=== PATIENT | female | born 1960 | race African-American/Black ===

== ENCOUNTER 2016-10-24 02:42 | Emergency (ER) | payer MEDICARE, MEDICAID ==
--- NOTE | 2016-10-24 03:35 | ER Document Report ---
ED General - General Chief Complaint: Fall Stated Complaint: FALL,NECK/BACK PAIN Time Seen by Provider: 10/24/16 03:12 Notes: Patient is a 56-year-old female with past medical history of chronic back pain, fibromyalgia, chronically on narcotics who presents with diffuse musculoskeletal pain after a slip and fall. Patient apparently slipped on a floor and landed onto her back. She arrives complaining of pain in every part of her body, unable to tell me any area of her body that does not hurt. Describes it as a severe, constant, throbbing pain. Nothing improves or worsens her pain. She has a history of similar falls in the past. She has not seen her primary care doctor regarding today's concerns. TRAVEL OUTSIDE OF THE [place] IN LAST 30 DAYS: No - Related Data Allergies/Adverse Reactions: carbamazepine [From Tegretol] Allergy (Verified 12/15/15 15:20) ibuprofen [From Motrin] Allergy (Verified 12/15/15 15:20) iodine Allergy (Verified 12/15/15 15:20) phenytoin [From Dilantin] Allergy (Verified 12/15/15 15:20) Past Medical History - General Information source: Patient, Relative - Social History Smoking Status: Unknown if Ever Smoked Frequency of alcohol use: None Drug Abuse: None Lives with: Family Family History: Reviewed & Not Pertinent Neurological Medical History: Reports: Hx Migraine, Hx Seizures Endocrine Medical History: Reports: Hx Hypothyroidism GI Medical History: Reports: Hx Crohn's Disease Musculoskeltal Medical History: Reports Hx Musculoskeletal Trauma Past Surgical History: Reports: Hx Cholecystectomy, Hx Orthopedic Surgery - Knee replacement 11/19/2015 - Immunizations Hx Diphtheria, Pertussis, Tetanus Vaccination: Yes Review of Systems - Review of Systems Notes: Constitutional: Negative for fever. Eyes: Negative for visual changes. ENT: Negative for facial injury Cardiovascular: Negative for chest injury. Respiratory: Negative for shortness of breath. Gastrointestinal: Negative for abdominal injury. Genitourinary: Negative for genital injury Musculoskeletal: Positive for diffuse musculoskeletal pain Skin: Negative for laceration/abrasions. Neurological: Negative for head injury. Physical Exam - Vital signs Vitals: Temp Pulse Resp BP Pulse Ox 97.7 F 70 20 124/85 98 10/24/16 02:56 10/24/16 02:56 10/24/16 02:56 10/24/16 02:56 10/24/16 02:56 Interpretation: Normal Notes: PHYSICAL EXAMINATION: GENERAL: Anxious, appears to be in pain. HEAD: Atraumatic, normocephalic. EYES: Pupils equal round and reactive to light, extraocular movements intact, sclera anicteric, conjunctiva are normal. ENT: nares patent, no oral pharyngeal trauma. No hemotympanum, no Montana's sign , no raccoon eyes. NECK: No midline cervical spine tenderness. Patient able to move their head to 45 bilaterally without any discomfort. LUNGS: Breath sounds clear to auscultation bilaterally and equal. No wheezes rales or rhonchi. HEART: Regular rate and rhythm without murmurs. CHEST WALL: No ecchymosis over the chest wall. ABDOMEN: Soft, nontender, normoactive bowel sounds. No guarding, no rebound. No abdominal bruising EXTREMITIES: Normal range of motion, no pitting or edema. No long bone deformities. BACK: No midline spinal tenderness, step-offs, or deformities. Diffuse paraspinous muscle tenderness to palpation NEUROLOGICAL: Face symmetric. Tongue protrudes midline. Extraocular motions intact. Pupils are 2 mm and equally reactive. Normal speech, normal gait. 5 out of 5 strength in both the distal and proximal upper and lower extremities bilaterally. Sensation is grossly intact throughout. PSYCH: Anxious, tearful SKIN: Warm, Dry, normal turgor, no rashes or lesions noted. Course - Re-evaluation Re-evalutation: 10/24/16 03:30 Presents with full body pain after a mechanical slip and fall after she slipped on the floor after recently mopping it. Patient is moaning, crying when I walk into the room but is redirectable and able to actually fully turn over in the bed onto her abdomen without difficulty. Patient has been seen in this emergency department on 4 prior occasions for falls and pain related complaints due to her chronic issues including fibromyalgia and chronic low back pain. Of concern, patient is unfortunately on oxycodone 90 mg daily as well as a 75 mcg/ h fentanyl patch and also apparently is prescribed amphetamines by the same provider. Her exam is not concerning for any acute injury and appears to be more likely diffuse musculoskeletal contusions and spasms compounded by hyperalgesia in the setting of this very high level of narcotic use. Examination is somewhat limited as patient complains of pain and every portion of her body. Patient cannot actually identify to me a single area of her body that does not hurt. Given that she appears to have most focal pain in her pelvis and low back as well as her right hand will obtain plain films of these areas. Patient evaluated by NEXUS criteria and found to be negative. Patient is also negative by cape verdean C-spine criteria. No clinical evidence to suggest increased risk of cervical spine fracture. No indication for further imaging of the cervical spine this point. No focal neurologic deficits on exam, no evidence of basilar skull fracture on exam without evidence of hemotympanum, raccoon eyes, or periauricular hematoma. No papilledema. Patient is not on anticoagulation. GCS is 15. No loss of consciousness. No episodes of vomiting. Patient is therefore negative via Lebanese head CT criteria and CT imaging will not be obtained at this time. 10/24/16 05:00 X-rays are unremarkable. Patient has remained neurovascularly intact. No indication for further imaging at this time. At this time will discharge with return precautions and follow-up recommendations. Verbal discharge instructions given a the bedside and opportunity for questions given. Medication warnings reviewed. Patient is in agreement with this plan and has verbalized understanding of return precautions and the need for primary care follow-up in the next 24-72 hours. - Vital Signs Vital signs: Temp Pulse Resp BP Pulse Ox 97.7 F 70 20 124/85 98 10/24/16 02:56 10/24/16 02:56 10/24/16 02:56 10/24/16 02:56 10/24/16 02:56 - Diagnostic Test Radiology reviewed: Reports reviewed Discharge - Discharge Clinical Impression: Fall Qualifiers: Encounter type: initial encounter Qualified Code(s): W19.XXXA - Unspecified fall, initial encounter Chronic pain Qualifiers: Chronic pain type: chronic pain syndrome Qualified Code(s): G89.4 - Chronic pain syndrome Opiate dependence Qualifiers: Substance use status: uncomplicated Qualified Code(s): F11.20 - Opioid dependence, uncomplicated Condition: Good Disposition: HOME, SELF-CARE Additional Instructions: Your x-rays not show any acute fracture today. You likely have soft tissue injuries and muscle inflammation secondary to your fall. You can use heat or ice to augment her chronic pain regimen. Please follow-up with your primary care physician if you do not have improving your symptoms in the next 1-2 weeks. Please return immediately if you develop weakness, numbness, spreading redness from the area, or any other symptoms that are concerning to you. Please also seriously consider having a conversation with your primary care doctor about the very large quantity of narcotic pain medications and amphetamines you are taking. These are directly related to how much pain you are having today after your accident.
[2016-10-24] MEDS ORDERED: LIDOCAINE 5% (700 MG) TRANSDERMAL ADH..PATCH TP ONE (03:39)
[2016-10-24] MEDS ORDERED: ACETAMINOPHEN 325 MG TABLET PO ONE (03:40)
[2016-10-24] MEDS ORDERED: FENTANYL CITRATE INJ/PF 100 MCG/2 ML AMPUL IV ONE (03:44)
--- NOTE | 2016-10-24 04:47 | RADIOLOGY REPORT (SQ) ---
EXAM DESCRIPTION: HAND RIGHT 3 VIEWS COMPLETED DATE/TIME: 10/24/2016 4:21 am REASON FOR STUDY: fall COMPARISON: None. EXAM PARAMETERS: NUMBER OF VIEWS: Three views. TECHNIQUE: AP, lateral and oblique radiographic images acquired of the right hand. LIMITATIONS: None. FINDINGS: MINERALIZATION: Normal. BONES: No acute fracture or dislocation. No worrisome bone lesions. JOINTS: Mild osteoarthritis of the 1st carpometacarpal joint. Moderate osteoarthritis of the interph alangeal joints worst at the right 2nd and 3rd distal interphalangeal joints with moderate osteophyte s and small fragmentation. SOFT TISSUES: No soft tissue swelling. No foreign body. OTHER: No other significant finding. IMPRESSION: Moderate osteoarthritis. NO RADIOGRAPHIC EVIDENCE OF ACUTE INJURY. TECHNICAL DOCUMENTATION: JOB ID: [id number]- All Rights Reserved
--- NOTE | 2016-10-24 04:51 | RADIOLOGY REPORT (SQ) ---
EXAM DESCRIPTION: L SPINE WHOLE COMPLETED DATE/TIME: 10/24/2016 4:21 am REASON FOR STUDY: fall COMPARISON: 03/17/2016 NUMBER OF VIEWS: Five views including obliques. TECHNIQUE: AP, lateral, oblique, and sacral radiographic images acquired of the lumbar spine. LIMITATIONS: None. FINDINGS: MINERALIZATION: Normal. SEGMENTATION: Normal. No transitional anatomy. ALIGNMENT: Normal. VERTEBRAE: Maintained height. No fracture or worrisome bone lesion. 0.2 cm chronic developmental fr agmentation at the anterior aspect of the L1 inferior endplate. DISCS: Mild L1-L2 disc desiccation. POSTERIOR ELEMENTS: Mild lower lumbar spondylosis. HARDWARE: Right upper abdominal clips. The PARASPINAL SOFT TISSUES: Normal. PELVIS: Intact as visualized. No fractures or worrisome bone lesions. SI joints intact. OTHER: No other significant finding. IMPRESSION: No acute findings. Mild lumbar spondylosis. TECHNICAL DOCUMENTATION: JOB ID: [id number] [employer]- All Rights Reserved
--- NOTE | 2016-10-24 04:52 | RADIOLOGY REPORT (SQ) ---
EXAM DESCRIPTION: PELVIS AP COMPLETED DATE/TIME: 10/24/2016 4:21 am REASON FOR STUDY: fall COMPARISON: None. NUMBER OF VIEWS: One view TECHNIQUE: AP Pelvis LIMITATIONS: None. FINDINGS: MINERALIZATION: Normal. HIPS: No acute fracture or dislocation. No worrisome bone lesions. PELVIS AND SACRUM: No acute fracture or dislocation. No worrisome bone lesions. PUBIS AND ISCHIUM: No acute fracture. LOWER LUMBAR SPINE: [id number] lower lumbar spondylosis. SOFT TISSUES: No findings. OTHER: No other significant finding. IMPRESSION: No acute findings. TECHNICAL DOCUMENTATION: JOB ID: [id number] [employer]- All Rights Reserved
[2016-10-24 05:14] VITALS: BP 130/65
== END 2016-10-24 05:14 | disposition home or self-care (01) ==
LOC: ER 02:42
DX: Z04.3 Encounter for examination and observation following other accident (principal); W01.0XXA Fall on same level from slipping, tripping and stumbling without subsequent striking against object, initial encounter; G89.4 Chronic pain syndrome; M54.5 Low back pain; M79.7 Fibromyalgia; F41.9 Anxiety disorder, unspecified; F11.20 Opioid dependence, uncomplicated; Z88.6 Allergy status to analgesic agent; Z88.5 Allergy status to narcotic agent
CPT/HCPCS: 99283; 96374; 73130; 72110; 72170; A9270; J3010

== ENCOUNTER → 2016-11-27 | Outpatient (CLI) | payer MEDICARE, MEDICAID ==
--- NOTE | 2016-11-27 14:22 | RADIOLOGY REPORT (SQ) ---
EXAM DESCRIPTION: LUMBAR SPINE COMPLETE COMPLETED DATE/TIME: 11/27/2016 1:57 pm REASON FOR STUDY: LUMBAGO WITH SCIATICA, RIGHT SIDE M25.571 PAIN IN RIGHT ANKLE AND JOINTS OF RIGHT FOOT M79.5 RESIDUAL FOREIGN BODY IN SOFT TISSUE M25.561 PAIN IN RIGHT KNEE COMPARISON: 10/24/2016 NUMBER OF VIEWS: Five views including obliques. TECHNIQUE: AP, lateral, oblique, and sacral radiographic images acquired of the lumbar spine. LIMITATIONS: None. FINDINGS: MINERALIZATION: Normal. SEGMENTATION: Normal. No transitional anatomy. ALIGNMENT: There is mild levoscoliosis at L4. There is grade 1 anterolisthesis of L3 on L4 and of L4 on L5. VERTEBRAE: Maintained height. No fracture or worrisome bone lesion. DISCS: There is mild narrowing disc spaces from L3-S1. POSTERIOR ELEMENTS: Hypertrophic facet changes are present from L3-S1. HARDWARE: None in the spine. PARASPINAL SOFT TISSUES: Normal. PELVIS: Intact as visualized. No fractures or worrisome bone lesions. SI joints intact. OTHER: No other significant finding. IMPRESSION: 1. No acute abnormality. 2. Mild scoliosis. 3. Anterolisthesis of L3 on L4 and L4 on L5. 4. Degenerative disc space narrowing. 5. Facet arthropathy. TECHNICAL DOCUMENTATION: JOB ID: [id number] [employer]- All Rights Reserved
--- NOTE | 2016-11-27 14:25 | RADIOLOGY REPORT (SQ) ---
EXAM DESCRIPTION: C SP 4 OR 5 VIEWS COMPLETED DATE/TIME: 11/27/2016 1:57 pm REASON FOR STUDY: CERVICALGIA M25.571 PAIN IN RIGHT ANKLE AND JOINTS OF RIGHT FOOT M79.5 RESIDUAL FOREIGN BODY IN SOFT TISSUE M25.561 PAIN IN RIGHT KNEE COMPARISON: None. NUMBER OF VIEWS: Five views. TECHNIQUE: AP, lateral, obliques and odontoid radiographic images acquired of the cervical spine. LIMITATIONS: None. FINDINGS: MINERALIZATION: Normal. ALIGNMENT: Straightening of the upper cervical spine. VERTEBRAE: Vertebral bodies of normal height. DISCS: Disc spaces are narrowed at C5-6 and C6-7 with anterior and posterior osteophytes. FORAMINA: There is narrowing of the neural foramina bilaterally to a moderate degree at C5-6 and C6-7 secondary to the presence of uncovertebral osteophytes. LATERAL AND POSTERIOR ELEMENTS: Facets, lateral masses and spinous processes without significant find ings. HARDWARE: None in the spine. SOFT TISSUES: No masses or calcifications. Lung apices clear. OTHER: No other significant finding. IMPRESSION: Degenerative disc disease and spondylosis. TECHNICAL DOCUMENTATION: JOB ID: [id number]- All Rights Reserved
--- NOTE | 2016-11-27 14:27 | RADIOLOGY REPORT (SQ) ---
EXAM DESCRIPTION: KNEE RIGHT 4 VIEWS COMPLETED DATE/TIME: 11/27/2016 1:57 pm REASON FOR STUDY: PAIN IN RIGHT KNEE M25.571 PAIN IN RIGHT ANKLE AND JOINTS OF RIGHT FOOT M79.5 RE SIDUAL FOREIGN BODY IN SOFT TISSUE M25.561 PAIN IN RIGHT KNEE COMPARISON: 01/21/2016 NUMBER OF VIEWS: Four views. TECHNIQUE: AP, lateral, and both oblique radiographic images acquired of the right knee. LIMITATIONS: None. FINDINGS: MINERALIZATION: Normal. BONES: There is a total knee arthroplasty. JOINT: No effusion. SOFT TISSUES: No soft tissue swelling. No radio-opaque foreign body. OTHER: No other significant finding. IMPRESSION: Total knee arthroplasty. No change. TECHNICAL DOCUMENTATION: JOB ID: [id number] [employer]- All Rights Reserved
--- NOTE | 2016-11-27 14:29 | RADIOLOGY REPORT (SQ) ---
EXAM DESCRIPTION: ANKLE RIGHT COMPLETE COMPLETED DATE/TIME: 11/27/2016 1:57 pm REASON FOR STUDY: PAIN IN RIGHT ANKLE AND JOINTS OF RIGHT FOOT M25.571 PAIN IN RIGHT ANKLE AND JOIN TS OF RIGHT FOOT M79.5 RESIDUAL FOREIGN BODY IN SOFT TISSUE M25.561 PAIN IN RIGHT KNEE COMPARISON: 12/15/2015 NUMBER OF VIEWS: Three views. TECHNIQUE: AP, lateral, and oblique radiographic images acquired of the right ankle. LIMITATIONS: None. FINDINGS: MINERALIZATION: Normal. BONES: No fracture or dislocation. Plantar calcaneal spur. JOINTS: No effusions. SOFT TISSUES: No soft tissue swelling. No foreign body. OTHER: No other significant finding. IMPRESSION: Calcaneal spur with no acute osseous abnormality. TECHNICAL DOCUMENTATION: JOB ID: [id number] [employer]- All Rights Reserved
--- NOTE | 2016-11-27 15:54 | RADIOLOGY REPORT (SQ) ---
EXAM DESCRIPTION: TIBIA FIBULA RIGHT COMPLETED DATE/TIME: 11/27/2016 3:33 pm REASON FOR STUDY: PAIN IN RIGHT LOWER LEG M25.571 PAIN IN RIGHT ANKLE AND JOINTS OF RIGHT FOOT M79. 661 PAIN IN RIGHT LOWER LEG M25.561 PAIN IN RIGHT KNEE COMPARISON: 01/21/2016. NUMBER OF VIEWS: Two views. TECHNIQUE: Two radiographic images acquired of the right tibia and fibula to include the knee and an kle in at least one projection. LIMITATIONS: None. FINDINGS: MINERALIZATION: Normal. BONES: No acute fracture or dislocation. Stable hardware in the distal femur and proximal tibia. No worrisome bone lesions. SOFT TISSUES: No obvious swelling or foreign body. OTHER: No other significant finding. IMPRESSION: STABLE HARDWARE. NO ACUTE FINDINGS. TECHNICAL DOCUMENTATION: JOB ID: [id number] [employer]- All Rights Reserved
== END ==
LOC: OD 12:16
PROVIDERS: ATTEND Family Medicine
DX: M25.571 Pain in right ankle and joints of right foot (principal); M79.661 Pain in right lower leg; M25.561 Pain in right knee; M54.2 Cervicalgia; M54.41 Lumbago with sciatica, right side
CPT/HCPCS: 72050; 72110

== ENCOUNTER 2016-12-16 12:59 | Emergency (ER) | payer MEDICARE, MEDICAID ==
--- NOTE | 2016-12-16 13:44 | ER Document Report ---
ED Substance Abuse / Acc. OD - General Mode of Arrival: Medic Information source: Patient, Law Enforcement, Emergency Med Personnel, [facility] Records TRAVEL OUTSIDE OF THE [place] IN LAST 30 DAYS: No - HPI Patient complains to provider of: Accidental overdose, Substance abuse Onset: Just prior to arrival Associated Symptoms: Other - see above <JOSE RAUL CEJA - Last Filed: 12/16/16 14:21> <REGGIE HDZ - Last Filed: 12/17/16 13:20> - General Chief Complaint: Possible Overdose Stated Complaint: POSSIBLE OVERDOSE Time Seen by Provider: 12/16/16 13:00 Notes: Patient is a 56 year old female who presents to the ED via EMS after a suspected overdose. Patient is accompanied by [facility]. Patient was reported to have been pulled over while driving erratically. She was found to have narcotics in an unmarked prescription bottle (2-1MG Klonazopan and 3-30MG of Oxycodone)and was arrested. While at the station during intake patient became unresponsive, she was unable to maintain consciousness, had shallow respirations and pinpoint pupils. EMS arrived and administered 1MG Narcan intranasal. She then received a 1MG Narcan via IV. Patient improved after the Narcan and became uncooperative. Per EMS patient does not remember driving. After talking for a while she states she was on her way to work and the pills were in that bottle because she did not want to take her full pill bottles to work. Patient states she is on a Fentanyl patch that she changes every 3 days and Oxycodone for chronic back pain and fibromyalgia. After reviewing the [place] narcotic database it is found that patient also received a prescription of 60 Ativan and 90 Klonazopan. When asking the ptaient about this she states it was from having severe panic attacks and depression. Patient is additionally on amphetamines. She states both of her prescribing doctors are aware of the medications she is on. Today patient took 1 Oxycodone at 0400 this morning and 2 more at 0800 this morning. Patient states she did not yet take the Klonazopan. EMS could not locate the Fentanyl patch and states that it is always falling off of her. (JOSE RAUL CEJA) - Related Data Allergies/Adverse Reactions: carbamazepine [From Tegretol] Allergy (Verified 12/15/15 15:20) ibuprofen [From Motrin] Allergy (Verified 12/15/15 15:20) iodine Allergy (Verified 12/15/15 15:20) phenytoin [From Dilantin] Allergy (Verified 12/15/15 15:20) Past Medical History - General Information source: Patient - Social History Smoking Status: Unknown if Ever Smoked Family History: Reviewed & Not Pertinent Neurological Medical History: Reports: Hx Migraine, Hx Seizures Endocrine Medical History: Reports: Hx Hypothyroidism GI Medical History: Reports: Hx Crohn's Disease Musculoskeltal Medical History: Reports Hx Musculoskeletal Trauma Psychiatric Medical History: Reports: Hx Anxiety, Hx Depression Past Surgical History: Reports: Hx Cholecystectomy, Hx Orthopedic Surgery - Knee replacement 11/19/2015 - Immunizations Hx Diphtheria, Pertussis, Tetanus Vaccination: Yes <JOSE RAUL CEJA - Last Filed: 12/16/16 14:21> Review of Systems - Review of Systems Constitutional: No symptoms reported EENT: No symptoms reported Cardiovascular: No symptoms reported Respiratory: No symptoms reported Gastrointestinal: No symptoms reported Genitourinary: No symptoms reported Female Genitourinary: No symptoms reported Musculoskeletal: No symptoms reported Skin: No symptoms reported Hematologic/Lymphatic: No symptoms reported Neurological/Psychological: See HPI, Other - overdose <JOSE RAUL CEJA - Last Filed: 12/16/16 14:21> Physical Exam - General General appearance: Alert, Other - tearful - HEENT Head: Normocephalic, Atraumatic Eyes: Normal Extraocular movements intact: Yes Pupils: PERRL - Respiratory Respiratory status: No respiratory distress Breath sounds: Normal - Cardiovascular Rhythm: Regular Heart sounds: Normal auscultation Murmur: No - Abdominal Inspection: Normal Distension: No distension Tenderness: Nontender - Back Back: Normal - Extremities General upper extremity: Normal inspection, Normal strength General lower extremity: Normal inspection, Normal strength - Neurological Neuro grossly intact: Yes - Psychological Associated symptoms: Tearful - Skin Skin Temperature: Warm Skin Moisture: Dry Skin Color: Normal <JOSE RAUL CEJA - Last Filed: 12/16/16 14:21> - Vital signs Vitals: Temp Resp BP Pulse Ox 97.5 F 20 121/101 H 100 12/16/16 13:31 12/16/16 13:31 12/16/16 13:31 12/16/16 13:31 Course <JOSE RAUL CEJA - Last Filed: 12/16/16 14:21> - Laboratory Result Diagrams: 12/16/16 13:50 12/16/16 13:50 <REGGIE HDZ - Last Filed: 12/17/16 13:20> - Re-evaluation Re-evalutation: 12/16/16 15:09 Patient brought to the emergency department with overdose. She was pulled over by the police for driving erratically when the place pulled her over they found pills in a pill bottle that was not labeled. They took her in and were booking her when she became unresponsive with pinpoint pupils EMS got there and gave her Narcan she completely aroused. On examination she is tearful as the police are telling her that they are going to prosecute her for driving under the influence of medication. Patient was here a few weeks back wanting pain medication and was instructed heavily by the ED physician that she was on too much pain medication. I did confirm that the patient is receiving to know 75 mics oxycodone up to 90 mg a day. 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 She does not know where the fentanyl patch got. She was also prescribed clonazepam and Ativan in the quantities of 60 and 90 by a nurse practitioner for panic attacks. This mixture of the benzodiazepines and narcotics is what caused the overdose today. I contacted the pharmacy and they verified that those medications were failed. Patient is awake alert she is on no long-acting medications per pharmacy no external signs of trauma. At this time am going to discharge her from the emergency department and to please custody follow-up as needed and discussed reasons for ED return sooner (REGGIE HDZ) - Vital Signs Vital signs: Temp Pulse Resp BP Pulse Ox 98.0 F 13 124/82 98 12/16/16 15:31 12/16/16 15:01 12/16/16 15:01 12/16/16 15:01 - Laboratory Laboratory results interpreted by me: 12/16/16 12/16/16 13:50 13:50 RBC 5.34 H RDW 14.4 H Creatinine 1.29 H Est GFR ( Amer) 52 L Est GFR (Non-Af Amer) 43 L Acetaminophen < 10 L Discharge <JOSE RAUL CEJA - Last Filed: 12/16/16 14:21> <REGGIE HDZ - Last Filed: 12/17/16 13:20> - Discharge Clinical Impression: Overdose Qualifiers: Encounter type: initial encounter Injury intent: accidental or unintentional Qualified Code(s): T50.901A - Poisoning by unspecified drugs, medicaments and biological substances, accidental (unintentional), initial encounter Condition: Stable Disposition: HOME, SELF-CARE Additional Instructions: Overdose You have taken more medication than you should have. After your evaluation and care, it is felt that your overdose is not likely to be harmful or of any significant consequences to you and you are being discharged. In the future, you should be careful not to take more medications than what is prescribed for you. Although your overdose does not seem to be of any danger to you at this time, if you develop any unusual or unexpected symptoms after your discharge, you should return to the Emergency Department immediately for re-evaluation. opiod and benzodiazepine overdose Referrals: DAVID REICH, [Primary Care Provider] - Follow up as needed Scribe Attestation: 12/16/16 15:13 I personally performed the services described in the documentation reviewed the documentation recorded by my scribe in my presence and it accurately and completely records my words and actions (REGGIE HDZ) [employer] Documentation - Scribe Written by Pradeep:: pradeep York, 12/16/2016, 1400 acting as scribe for :: Eric <JOSE RAUL CEJA - Last Filed: 12/16/16 14:21>
[2016-12-16 14:38] LABS: ABSOLUTE BASOPHILS # (AUTO) 0.1 10^3/uL (0.0-0.2); ABSOLUTE EOSINOPHILS # (AUTO) 0.3 10^3/uL (0.0-0.6); ABSOLUTE MONOCYTES (AUTO) 0.4 10^3/uL (0.1-1.4); ABSOLUTE NEUT (AUTO) 6.7 10^3/uL (1.7-8.2); BASOPHILS % (AUTO) 0.6 % (0-2); EOSINOPHILS % (AUTO) 3.1 % (0-6); HEMATOCRIT 45.6 % (36.0-47.0); HGB HCT DIFFERENCE -0.6; LYMPHOCYTES % (AUTO) 28.2 % (13-45); MEAN CORPUSCULAR HGB CONC 32.8 g/dL (32.0-36.0); MEAN CORPUSCULAR VOLUME 85 fl (80-97); MONOCYTES % (AUTO) 4.1 % (3-13); RED BLOOD COUNT 5.34 10^6/uL (3.72-5.28); RED CELL DISTRIBUTION WIDTH 14.4 % (11.5-14.0); WHITE BLOOD COUNT 10.5 10^3/uL (4.0-10.5)
[2016-12-16 14:50] LABS: ANION GAP 13 (5-19); BLOOD UREA NITROGEN 17 mg/dL (7-20); CALCIUM 9.9 mg/dL (8.4-10.2); CARBON DIOXIDE 27 mmol/L (22-30); CHLORIDE 100 mmol/L (98-107); CREATININE RESULT 1.29 mg/dL (0.52-1.25); GLUCOSE 96 mg/dL (75-110); POTASSIUM 4.6 mmol/L (3.6-5.0); SODIUM 140.2 mmol/L (137-145)
[2016-12-16 14:53] LABS: ALCOHOL < 10 mg/dL (NONE DETECTED)
[2016-12-16 15:25] VITALS: BP 124/82
[2016-12-16 15:46] LABS: URINE BARBITURATES SCREEN NEGATIVE; URINE METHADONE SCREEN NEGATIVE; URINE OPIATES LOW UNCONFIRMED POSITIVE; URINE PHENCYCLIDINE SCREEN NEGATIVE
== END 2016-12-16 15:31 | disposition home or self-care (01) ==
LOC: ER 12:59
DX: T50.901A Poisoning by unspecified drugs, medicaments and biological substances, accidental (unintentional), initial encounter (principal)
CPT/HCPCS: 36415; 80048; 80307; 85025; 99284

== ENCOUNTER 2017-02-03 00:05 | Emergency (ER) | payer MEDICARE, MEDICAID ==
[2017-02-03] MEDS ORDERED: ACETAMINOPHEN 325 MG TABLET PO ONE (03:10)
--- NOTE | 2017-02-03 03:59 | RADIOLOGY REPORT (SQ) ---
EXAM DESCRIPTION: CT HEAD WITHOUT COMPLETED DATE/TIME: 02/03/2017 3:44 am REASON FOR STUDY: headache COMPARISON: None. TECHNIQUE: Axial images acquired through the brain without intravenous contrast. Images reviewed wi th bone, brain and subdural windows. Images stored on PACS. All CT scanners at this facility use dose modulation, iterative reconstruction, and/or weight based d osing when appropriate to reduce radiation dose to as low as reasonably achievable (ALARA). [facility]: Dose Right [facility]: CareDose [facility]: Dose Right [facility]: Teradose 4D [facility]: Smart Viptable RADIATION DOSE: Up-to-date CT equipment and radiation dose reduction techniques were employed. CTDIv ol: 64.6 mGy. DLP: 1163 mGy-cm. mGy. LIMITATIONS: Left earring artifact. FINDINGS: VENTRICLES: Normal size and contour. CEREBRUM: No masses. No hemorrhage. No midline shift. No evidence for acute infarction. Normal gra y/white matter differentiation. No areas of low density in the white matter. CEREBELLUM: No masses. No hemorrhage. No alteration of density. No evidence for acute infarction. EXTRAAXIAL SPACES: No fluid collections. No masses. ORBITS AND GLOBE: No intra- or extraconal masses. Normal contour of globe without masses. CALVARIUM: No fracture. PARANASAL SINUSES: No fluid or mucosal thickening. SOFT TISSUES: No mass or hematoma. OTHER: No other significant finding. IMPRESSION: NORMAL BRAIN CT WITHOUT CONTRAST. EVIDENCE OF ACUTE STROKE: NO. COMMENT: Quality ID # [id number]: Final reports with documentation of one or more dose reduction techniques (e.g., Automated exposure control, adjustment of the mA and/or kV according to patient size, use of iterative reconstruction technique) TECHNICAL DOCUMENTATION: JOB ID: [id number]- All Rights Reserved
--- NOTE | 2017-02-03 04:02 | ER Document Report ---
ED General - General Chief Complaint: Headache Stated Complaint: BODY PAIN Time Seen by Provider: 02/03/17 02:35 Notes: Patient is a 56-year-old female presents with complaint of pain throughout her body. She says she has pain in her head into her arms and her shoulders and into her chest. Says it has been ongoing since yesterday. No fevers. No vomiting or diarrhea. She denies taking any pain medications. When I walked in the room she is sleeping at times hard to arouse. She is very somewhat has pinpoint pupils. I read the triage note and she was also somewhat for them. She denies any focal weakness or numbness. No recent trauma or injuries. No other complaints at this time. TRAVEL OUTSIDE OF THE [place] IN LAST 30 DAYS: No - Related Data Allergies/Adverse Reactions: carbamazepine [From Tegretol] Allergy (Verified 02/03/17 00:35) ibuprofen [From Motrin] Allergy (Verified 02/03/17 00:35) iodine Allergy (Verified 02/03/17 00:35) phenytoin [From Dilantin] Allergy (Verified 02/03/17 00:35) Past Medical History - Social History Smoking Status: Current Every Day Smoker Chew tobacco use (# tins/day): No Frequency of alcohol use: None Drug Abuse: None Family History: Reviewed & Not Pertinent Patient has suicidal ideation: No Patient has homicidal ideation: No - Past Medical History Cardiac Medical History: Reports: Hx Hypertension Neurological Medical History: Reports: Hx Migraine, Hx Seizures Endocrine Medical History: Reports: Hx Hypothyroidism Renal/ Medical History: Denies: Hx Peritoneal Dialysis GI Medical History: Reports: Hx Crohn's Disease Musculoskeltal Medical History: Reports Hx Musculoskeletal Trauma Psychiatric Medical History: Reports: Hx Anxiety, Hx Depression Past Surgical History: Reports: Hx Cholecystectomy, Hx Orthopedic Surgery - Knee replacement 11/19/2015 - Immunizations Hx Diphtheria, Pertussis, Tetanus Vaccination: Yes Review of Systems - Review of Systems Notes: My Normal Review Basic REVIEW OF SYSTEMS: CONSTITUTIONAL : Denies fever, chills, or sweats. Denies recent illness. EENT: Denies eye, ear, throat, or mouth pain or symptoms. Denies nasal or sinus congestion. CARDIOVASCULAR: pain into upper chest RESPIRATORY: Denies cough, cold, or chest congestion. Denies shortness of breath, difficulty breathing, or wheezing. GASTROINTESTINAL: Denies abdominal pain. Denies nausea, vomiting, or diarrhea. Denies constipation. Last BM: MUSCULOSKELETAL: pain in upper extremities SKIN: Denies rash or skin lesions. NEUROLOGICAL: Denies altered mental status or loss of consciousness. Has a headache. Denies weakness or paralysis or loss of use of either side. Denies problems with gait or speech. Denies sensory or motor loss. ALL OTHER SYSTEMS REVIEWED AND NEGATIVE. Physical Exam - Vital signs Vitals: Temp Pulse Resp BP Pulse Ox 98.1 F 96 18 147/63 H 92 02/03/17 00:35 02/03/17 00:35 02/03/17 00:35 02/03/17 00:35 02/03/17 00:35 - Notes Notes: General Appearance: Well nourished, she is sleeping when into the room. She is somewhat when I wake her up. She has pinpoint pupils., no acute distress, no obvious discomfort. Vitals: reviewed, See vital signs table. Head: no swelling or tenderness to the head Eyes: PERRL, EOMI, Conjuctiva clear. Pupils are pinpoint. Mouth: No decreasd moisture Throat: No tonsillar inflammation, No airway obstruction, No lymphadenopathy Neck: Supple, no neck tenderness, positive bilateral. Cervical muscular tenderness palpation. Lungs: No wheezing, No rales, No rhonci, No accessory muscle use, good air exchange bilaterally. Heart: Normal rate, Regular rythm, No murmur, no rub Chest wall: Pain to palpation of her upper chest wall. Back: Pain palpation over the upper back along the paraspinal musculature and into the trapezius muscles. Patient has pain with even mild touch to the muscles. Abdomen: Normal BS, soft, No rigidity, No abdominal tenderness, No guarding, no rebound, no abdominal masses, no organomegaly Extremities: strength 5/5 in all extremities, good pulses in all extremities, pain to palpation over the entire arms throughout the hands. Pain even with mild touch. Pain with movement. No edema. Skin: warm, dry, appropriate color, no rash Neuro: speech clear, oriented x 3, normal affect, responds appropriately to questions. Cranial nerves II through XII are intact. Patient is able to move all 4 extremities and has good distal sensation in all 4 extremities. Patient is somnolent. She does appear possibly intoxicated with pain medication. She will slightly saw her slurring her words at times. Course - Re-evaluation Re-evalutation: 02/03/17 06:08 Patient is feeling improved. Her pupils are now normal size and she is no longer somnolent. She was recently arrested 2 weeks ago for having opiate medications that were not hers in for driving while intoxicated. I suspect at this time she arrived she was also intoxicated. Her pain feels more like muscle tension and it is very easily reproducible palpation every push over her shoulders and neck and arms. I initially obtain a CT scan mainly because she was somnolent when she first arrived. CT scan was negative. I do not suspect subarachnoid hemorrhage. I suspect that she was probably under the influence of some opiate medications when she first arrived. She is now awake and alert and appropriate. She will be discharged home. She said the Skelaxin did help her pain. I will write her prescription for Skelaxin. I informed her she needs to follow-up with her doctor on Sunday for reevaluation. Encouraged her return to ER if she has recurrent worsening headaches, fevers, or feels unwell. Dictation of this chart was performed using voice recognition software; therefore, there may be some unintended grammatical errors. - Vital Signs Vital signs: Temp Pulse Resp BP Pulse Ox 99.0 F 96 12 110/75 95 02/03/17 04:00 02/03/17 00:35 02/03/17 05:00 02/03/17 05:00 02/03/17 05:00 - Laboratory Result Diagrams: 02/03/17 05:10 02/03/17 05:10 Laboratory results interpreted by me: 02/03/17 05:10 Glucose 121 H Creatine Kinase 1341 H - EKG Interpretation by Me Additional EKG results interpreted by me: 02/03/17 04:35 EKG is reviewed and interpreted by me. EKG shows normal sinus rhythm with rate of [address] segment elevation or depression. No ischemic T-wave inversions. GA interval, QRS duration, QTc intervals are within normal range. No old EKG available for comparison. Discharge - Discharge Clinical Impression: Muscle ache Headache Qualifiers: Headache type: unspecified Headache chronicity pattern: acute headache Intractability: not intractable Qualified Code(s): R51 - Headache Condition: Good Disposition: HOME, SELF-CARE Additional Instructions: HEADACHE: The physician does not feel that the headache you are experiencing has a serious underlying cause. Most headaches are due to emotional stress, with resultant muscle tension (tension headache). Occasionally, headaches are secondary to changes in the blood vessels of the scalp (vascular headache and migraine headache). Sometimes, a headache is the first symptom of another developing illness, such as a viral infection. You have no evidence of stroke, bleeding, meningitis, or other serious cause of your headache. The treatment of headaches varies with the severity and cause of the pain. Not all headaches need pain shots. In fact, there is evidence that using narcotics for headaches may make them worse in the long run. The physician will determine the therapy that's in your best interest. If you develop a fever, if the headache is different from any you've previously experienced, or if the headache progressively worsens, then call your physician at once or go to the emergency room. FOLLOW-UP CARE: If you have been referred to a physician for follow-up care, call the physician s office for an appointment as you were instructed or within the next two days. If you experience worsening or a significant change in your symptoms, notify the physician immediately or return to the Emergency Department at any time for re-evaluation. Please drink noncaffeinated liquids. please stay out of the heat. Please take the medication as prescribed. please follow up with your doctor on Sunday for reevaluation. please return to the ER immediately if you have worsening pain, vomiting, fevers, or feel unwell. Prescriptions: Metaxalone [Skelaxin 800 mg Tablet] 800 mg PO ASDIR PRN #20 tablet PRN Reason: Forms: Return to Work
--- NOTE | 2017-02-03 04:17 | RADIOLOGY REPORT (SQ) ---
EXAM DESCRIPTION: CHEST SINGLE VIEW COMPLETED DATE/TIME: 02/03/2017 4:01 am REASON FOR STUDY: chest pain COMPARISON: None. EXAM PARAMETERS: NUMBER OF VIEWS: One view. TECHNIQUE: Single frontal radiographic view of the chest acquired. RADIATION DOSE: NA LIMITATIONS: None. FINDINGS: LUNGS AND PLEURA: No opacities, masses or pneumothorax. No pleural effusion. Minimal left basilar atelectasis or scar. MEDIASTINUM AND HILAR STRUCTURES: No masses. Contour normal. HEART AND VASCULAR STRUCTURES: Heart normal in size. Normal vasculature. BONES: No acute findings. Mild osteoarthritis. Mild scoliotic curvature. HARDWARE: None in the chest. OTHER: No other significant finding. IMPRESSION: No acute cardiopulmonary findings. TECHNICAL DOCUMENTATION: JOB ID: [id number]
[2017-02-03] MEDS ORDERED: METAXALONE 800 MG TABLET PO ONE (05:09)
[2017-02-03 05:22] LABS: ABSOLUTE BASOPHILS # (AUTO) 0.1 10^3/uL (0.0-0.2); ABSOLUTE EOSINOPHILS # (AUTO) 0.1 10^3/uL (0.0-0.6); ABSOLUTE LYMPHOCYTES (AUTO) 2.7 10^3/uL (0.5-4.7); ABSOLUTE MONOCYTES (AUTO) 0.5 10^3/uL (0.1-1.4); ABSOLUTE NEUT (AUTO) 6.9 10^3/uL (1.7-8.2); BASOPHILS % (AUTO) 0.9 % (0-2); EOSINOPHILS % (AUTO) 1.4 % (0-6); HEMATOCRIT 41.3 % (36.0-47.0); HEMOGLOBIN 13.7 g/dL (12.0-15.5); HGB HCT DIFFERENCE -0.2; LYMPHOCYTES % (AUTO) 25.9 % (13-45); MEAN CORPUSCULAR HGB CONC 33.2 g/dL (32.0-36.0); MEAN CORPUSCULAR VOLUME 84 fl (80-97); MONOCYTES % (AUTO) 4.9 % (3-13); RED CELL DISTRIBUTION WIDTH 13.7 % (11.5-14.0); SEGMENTED NEUTROPHILS % (AUTO) 66.9 % (42-78); WHITE BLOOD COUNT 10.4 10^3/uL (4.0-10.5)
[2017-02-03 05:58] LABS: ANION GAP 11 (5-19); BLOOD UREA NITROGEN 12 mg/dL (7-20); CALCIUM 9.3 mg/dL (8.4-10.2); CARBON DIOXIDE 26 mmol/L (22-30); CHLORIDE 103 mmol/L (98-107); CREATINE KINASE 1341 U/L (30-135); CREATININE RESULT 0.83 mg/dL (0.52-1.25); GLUCOSE 121 mg/dL (75-110); POTASSIUM 4.1 mmol/L (3.6-5.0); SODIUM 140.2 mmol/L (137-145)
[2017-02-03 06:08] VITALS: BP 124/84
--- NOTE | 2017-02-03 07:48 | EKG REPORT ---
SEVERITY:- ABNORMAL ECG - SINUS RHYTHM LEFT POSTERIOR FASCICULAR BLOCK BORDERLINE T ABNORMALITIES, DIFFUSE LEADS : Confirmed by: Gideon Rome MD 03-Feb-2017 07:48:18
== END 2017-02-03 06:20 | disposition home or self-care (01) ==
LOC: ER 00:05
DX: R51 Headache (principal); M79.1 Myalgia; M79.603 Pain in arm, unspecified; M25.519 Pain in unspecified shoulder; R07.9 Chest pain, unspecified; M79.643 Pain in unspecified hand; M54.89 Other dorsalgia; R40.0 Somnolence; R47.81 Slurred speech; F17.200 Nicotine dependence, unspecified, uncomplicated; I10 Essential (primary) hypertension; Z88.6 Allergy status to analgesic agent; Z88.8 Allergy status to other drugs, medicaments and biological substances; Z86.69 Personal history of other diseases of the nervous system and sense organs
CPT/HCPCS: 93005; 99284; 36415; 82550; 85025; 80048; 71010; 70450; 93010; A9270 ×2; J3490

== ENCOUNTER 2017-05-25 19:35 | Emergency (ER) | payer MEDICARE, MEDICAID ==
--- NOTE | 2017-05-25 20:50 | ER Document Report ---
ED Medical Screen (RME) - General Chief Complaint: Fall Stated Complaint: RIGHT SIDE PAIN/FALL Time Seen by Provider: 05/25/17 20:48 Mode of Arrival: Ambulatory Information source: Patient Notes: Patient is a 56-year-old female who presents to the ER today 3 days after a fall , tripping over a sidewalk. Patient states that she fell with her hands stretched out, hurting her chest, stomach, knees, hip, face. TRAVEL OUTSIDE OF THE [place] IN LAST 30 DAYS: No - Related Data Allergies/Adverse Reactions: carbamazepine [From Tegretol] Allergy (Verified 02/03/17 00:35) ibuprofen [From Motrin] Allergy (Verified 02/03/17 00:35) iodine Allergy (Verified 02/03/17 00:35) phenytoin [From Dilantin] Allergy (Verified 02/03/17 00:35) Past Medical History - General Information source: Patient - Social History Chew tobacco use (# tins/day): No Frequency of alcohol use: None Drug Abuse: None - Past Medical History Cardiac Medical History: Reports: Hx Hypertension Neurological Medical History: Reports: Hx Migraine, Hx Seizures Endocrine Medical History: Reports: Hx Hypothyroidism Renal/ Medical History: Denies: Hx Peritoneal Dialysis GI Medical History: Reports: Hx Crohn's Disease Musculoskeltal Medical History: Reports Hx Musculoskeletal Trauma Psychiatric Medical History: Reports: Hx Anxiety, Hx Depression Past Surgical History: Reports: Hx Cholecystectomy, Hx Orthopedic Surgery - Knee replacement 11/19/2015 - Immunizations Hx Diphtheria, Pertussis, Tetanus Vaccination: Yes History of Influenza Vaccine for 01/2017 - 06/2017 Season: No Review of Systems - Review of Systems Musculoskeletal: See HPI Physical Exam - Vital signs Vitals: Temp Pulse BP Pulse Ox 99.1 F 92 157/90 H 93 05/25/17 19:52 05/25/17 19:52 05/25/17 19:52 05/25/17 19:52 - Notes Notes: PHYSICAL EXAMINATION: GENERAL: Uncomfortable appearing, speaks slowly, but in no acute distress. EXTREMITIES: Tender to bilateral knees, wrists, no pitting edema. No cyanosis. Course - Vital Signs Vital signs: Temp Pulse Resp BP Pulse Ox 99.1 F 92 157/90 H 98 05/25/17 19:52 05/25/17 19:52 05/25/17 19:52 05/25/17 19:56
--- NOTE | 2017-05-25 22:55 | RADIOLOGY REPORT (SQ) ---
EXAM DESCRIPTION: HIP BILATERAL COMPLETED DATE/TIME: 05/25/2017 10:43 pm REASON FOR STUDY: fall, pain COMPARISON: None. NUMBER OF VIEWS: Three views. TECHNIQUE: AP pelvis and additional frog-leg view of the right and left hips. LIMITATIONS: None. FINDINGS: There is no acute fracture or dislocation. The pelvic ring is intact. The bilateral hip joints are maintained. The soft tissues are unremarkable. IMPRESSION: No radiographic evidence of acute injury. TECHNICAL DOCUMENTATION: JOB ID: [id number] [place]-[id number] 2010 [employer]- All Rights Reserved
--- NOTE | 2017-05-25 23:03 | RADIOLOGY REPORT (SQ) ---
EXAM DESCRIPTION: KNEE BILATERAL 1-2 VIEWS COMPLETED DATE/TIME: 05/25/2017 10:43 pm REASON FOR STUDY: fall, pain COMPARISON: Right knee x-ray 11/27/2016, 12/26/2015, 01/21/2016. NUMBER OF VIEWS: Four views. TECHNIQUE: AP and lateral radiographic images acquired of the right and left knees. LIMITATIONS: None. FINDINGS: RIGHT KNEE: MINERALIZATION: Normal. BONES: No acute fracture or dislocation. The patient is status post total right knee arthroplasty wi th patellar resurfacing. There is redemonstration of lucency around the tibial component of the pros thesis. JOINT: Small effusion. SOFT TISSUES: No soft tissue swelling. No radio-opaque foreign body. LEFT KNEE: MINERALIZATION: Normal. BONES: No acute fracture or dislocation. Mild tricompartmental degenerative changes are noted, worse at the medial compartment. JOINT: Small effusion. SOFT TISSUES: No soft tissue swelling. No radio-opaque foreign body. IMPRESSION: No radiographic evidence for acute fracture. Small bilateral knee joint effusions. Deg enerative changes at the left knee. Status post total right knee arthroplasty with lucency around the tibial component of the prosthesis, please correlate for infection or loosening. TECHNICAL DOCUMENTATION: JOB ID: [id number] [place]-[id number] 2010 [employer]- All Rights Reserved
--- NOTE | 2017-05-25 23:04 | RADIOLOGY REPORT (SQ) ---
EXAM DESCRIPTION: CHEST PA/LAT COMPLETED DATE/TIME: 05/25/2017 10:43 pm REASON FOR STUDY: fall, pain COMPARISON: Chest x-ray 02/03/2017. EXAM PARAMETERS: NUMBER OF VIEWS: two views TECHNIQUE: Digital Frontal and Lateral radiographic views of the chest acquired. RADIATION DOSE: NA LIMITATIONS: none FINDINGS: LUNGS AND PLEURA: Mild bibasilar atelectasis. No pleural effusion or pneumothorax. MEDIASTINUM AND HILAR STRUCTURES: No masses or contour abnormalities. HEART AND VASCULAR STRUCTURES: Heart normal size. No evidence for failure. BONES: Mild multilevel degenerative changes in the spine. HARDWARE: None in the chest. IMPRESSION: Mild bibasilar atelectasis. TECHNICAL DOCUMENTATION: JOB ID: [id number] [place]-[id number] 2010 [employer]- All Rights Reserved
--- NOTE | 2017-05-25 23:07 | RADIOLOGY REPORT (SQ) ---
EXAM DESCRIPTION: WRIST BILATERAL 2 VIEWS COMPLETED DATE/TIME: 05/25/2017 10:43 pm REASON FOR STUDY: fall, pain COMPARISON: None. NUMBER OF VIEWS: Four views. TECHNIQUE: AP and lateral radiographic images acquired of the right and left wrists. LIMITATIONS: None. FINDINGS: MINERALIZATION: Normal. BONES: No acute fracture or dislocation. Degenerative changes are seen at the bilateral 1st carpomet acarpal joints. SOFT TISSUES: No soft tissue swelling. No radiopaque foreign body. IMPRESSION: No radiographic evidence of acute fracture. TECHNICAL DOCUMENTATION: JOB ID: [id number] [place]-[id number] 2010 [employer]- All Rights Reserved
--- NOTE | 2017-05-26 01:38 | ER Document Report ---
ED General - General Chief Complaint: Fall Stated Complaint: RIGHT SIDE PAIN/FALL Time Seen by Provider: 05/25/17 20:48 Mode of Arrival: Ambulatory Notes: Patient is a 56 year old female who presents with 2 days of diffuse body pain after a fall. Patient apparently fell 2 days ago and since that time is been complaining of pain in her bilateral lower extremities worse on the right. She states that she had a knee replacement on the right side and feels like the joel has "cracked". Patient states mechanism fall was loss of balance and denied any syncopal episode. She has been evaluated repeatedly in the past for falls in the emergency department without identified injury. She denies any head or neck trauma during the fall today. She has not seen her primary doctor. Patient continues on chronic fentanyl, oxycodone for chronic pain. She denies any vomiting, weakness, numbness or confusion since the fall. TRAVEL OUTSIDE OF THE [place] IN LAST 30 DAYS: No - Related Data Allergies/Adverse Reactions: carbamazepine [From Tegretol] Allergy (Verified 02/03/17 00:35) ibuprofen [From Motrin] Allergy (Verified 02/03/17 00:35) iodine Allergy (Verified 02/03/17 00:35) phenytoin [From Dilantin] Allergy (Verified 02/03/17 00:35) Past Medical History - General Information source: Patient - Social History Smoking Status: Current Every Day Smoker Chew tobacco use (# tins/day): No Frequency of alcohol use: None Drug Abuse: None Lives with: Family Family History: Reviewed & Not Pertinent Patient has suicidal ideation: No Patient has homicidal ideation: No - Past Medical History Cardiac Medical History: Reports: Hx Hypertension Neurological Medical History: Reports: Hx Migraine, Hx Seizures Endocrine Medical History: Reports: Hx Hypothyroidism Renal/ Medical History: Denies: Hx Peritoneal Dialysis GI Medical History: Reports: Hx Crohn's Disease Musculoskeltal Medical History: Reports Hx Musculoskeletal Trauma Psychiatric Medical History: Reports: Hx Anxiety, Hx Depression Past Surgical History: Reports: Hx Cholecystectomy, Hx Orthopedic Surgery - Knee replacement 11/19/2015 - Immunizations Hx Diphtheria, Pertussis, Tetanus Vaccination: Yes Review of Systems - Review of Systems Notes: Constitutional: Negative for fever. Eyes: Negative for visual changes. ENT: Negative for facial injury Cardiovascular: Negative for chest injury. Respiratory: Negative for shortness of breath. Gastrointestinal: Negative for abdominal injury. Genitourinary: Negative for genital injury Musculoskeletal: Positive for bilateral lower extremity pain Skin: Positive for laceration/abrasions. Neurological: Negative for head injury. Physical Exam - Vital signs Vitals: Temp Pulse BP Pulse Ox 99.1 F 92 157/90 H 93 05/25/17 19:52 05/25/17 19:52 05/25/17 19:52 05/25/17 19:52 Interpretation: Hypertensive Notes: PHYSICAL EXAMINATION: GENERAL: Sleeping when I walk into the room, wakes to loud voice HEAD: Atraumatic, normocephalic. EYES: Pupils are pinpoint, reactive to light, extraocular movements intact, sclera anicteric, conjunctiva are normal. ENT: nares patent, oropharynx clear without exudates. Moist mucous membranes. NECK: Normal range of motion, supple without lymphadenopathy LUNGS: Breath sounds clear to auscultation bilaterally and equal. No wheezes rales or rhonchi. HEART: Regular rate and rhythm without murmurs ABDOMEN: Soft, nontender, normoactive bowel sounds. No guarding, no rebound. No masses appreciated. EXTREMITIES: Normal range of motion, no pitting or edema. No cyanosis. No pain with axial loading of the hip on either side. No deformity the bilateral upper and lower extremities. NEUROLOGICAL: No focal neurological deficits. Moves all extremities spontaneously and on command. PSYCH: Somewhat anxious SKIN: Warm, Dry, normal turgor, abrasion and ecchymosis over the left patella Course - Re-evaluation Re-evalutation: 05/26/17 01:35 Patient presents after a fall 2 days ago, complaining of increased difficulty with walking over that period of time. Patient has a long history of chronic opiate use for chronic pain as well as a hyperalgesia syndrome. When I walk in the room the patient is sleeping soundly. After waking her up she begins to point to multiple areas of pain including her bilateral knees, her left hip, but denies any acute head or neck injury. Examination of these areas reveals atraumatic ecchymosis over the left patellar surface but no other identifiable areas of injury. X-rays of all areas of complaints are unremarkable without any acute fractures or dislocations. There is a small joint effusion of the left knee. Patient was able to ambulate here in the emergency department. At this time will discharge with return precautions and follow-up recommendations. Verbal discharge instructions given a the bedside and opportunity for questions given. Medication warnings reviewed. Patient is in agreement with this plan and has verbalized understanding of return precautions and the need for primary care follow-up in the next 24-72 hours. - Vital Signs Vital signs: Temp Pulse Resp BP Pulse Ox 98.9 F 89 19 151/85 H 95 05/26/17 02:12 05/26/17 02:12 05/26/17 02:12 05/26/17 02:12 05/26/17 02:12 - Diagnostic Test Radiology reviewed: Reports reviewed Discharge - Discharge Clinical Impression: Fall Qualifiers: Encounter type: initial encounter Qualified Code(s): W19.XXXA - Unspecified fall, initial encounter Bilateral knee pain Qualifiers: Chronicity: acute Qualified Code(s): M25.561 - Pain in right knee Hip pain Qualifiers: Laterality: bilateral Qualified Code(s): M25.551 - Pain in right hip Condition: Good Disposition: HOME, SELF-CARE Additional Instructions: You have been seen in the Emergency Department (ED) today following a fall. Your workup today did not reveal any injuries that require you to stay in the hospital. You can expect, though, to be stiff and sore for the next several days. Take your pain medications as prescribed. You can apply a hot pack or electric heating pad to the sore areas. You can also use topical "Aspercreme with lidocaine" to sore areas as needed. Please follow up with your primary care doctor as soon as possible regarding today's ED visit and your recent accident. Call your doctor or return to the ED if you develop a sudden or severe headache , confusion, slurred speech, facial droop, weakness or numbness in any arm or leg, extreme fatigue, vomiting more than two times, severe abdominal pain, or other symptoms that concern you. Referrals: DAVID REICH, [Primary Care Provider] - Follow up as needed
[2017-05-26 02:14] VITALS: BP 151/85
== END 2017-05-26 02:12 | disposition home or self-care (01) ==
LOC: ER 19:35
DX: M25.561 Pain in right knee (principal); M25.551 Pain in right hip; F17.200 Nicotine dependence, unspecified, uncomplicated; W01.0XXA Fall on same level from slipping, tripping and stumbling without subsequent striking against object, initial encounter; G89.29 Other chronic pain; I10 Essential (primary) hypertension; Z96.651 Presence of right artificial knee joint; Z88.6 Allergy status to analgesic agent; Z90.49 Acquired absence of other specified parts of digestive tract
CPT/HCPCS: 71046; 73522; 99284

== ENCOUNTER → 2018-05-11 | Outpatient (CLI) | payer MEDICARE, MEDICAID ==
--- NOTE | 2018-05-12 08:09 | RADIOLOGY REPORT (SQ) ---
EXAM DESCRIPTION: L SPINE WHOLE COMPLETED DATE/TIME: 05/11/2018 9:06 pm REASON FOR STUDY: LOW BACK PAIN M79.605 PAIN IN LEFT LEG W17.2XXA FALL INTO HOLE, INITIAL ENCOUNTE R M54.5 LOW BACK PAIN COMPARISON: 10/24/2016. NUMBER OF VIEWS: Five views including obliques. TECHNIQUE: AP, lateral, oblique, and sacral radiographic images acquired of the lumbar spine. LIMITATIONS: None. FINDINGS: MINERALIZATION: Normal. SEGMENTATION: Normal. No transitional anatomy. ALIGNMENT: Minimal grade 1 anterolisthesis of L 4 on L5. VERTEBRAE: Maintained height. No fracture or worrisome bone lesion. DISCS: Mild disc space narrowing. No significant osteophytes or end plate irregularity. POSTERIOR ELEMENTS: Pedicles and facets are intact. Facet arthropathy in the lower lumbar spine. No pars defect or posterior arch defects. HARDWARE: None in the spine. PARASPINAL SOFT TISSUES: Normal. PELVIS: Intact as visualized. No fractures or worrisome bone lesions. SI joints intact. OTHER: No other significant finding. IMPRESSION: MILD DEGENERATIVE CHANGES. NO ACUTE FINDINGS. TECHNICAL DOCUMENTATION: JOB ID: [id number]- All Rights Reserved Reading location - IP/workstation name: [email or web address]
--- NOTE | 2018-05-12 08:10 | RADIOLOGY REPORT (SQ) ---
EXAM DESCRIPTION: T SPINE AP/LAT COMPLETED DATE/TIME: 05/11/2018 9:06 pm REASON FOR STUDY: DORSALGIA, UNSPECIFIED M79.605 PAIN IN LEFT LEG W17.2XXA FALL INTO HOLE, INITIAL ENCOUNTER M54.5 LOW BACK PAIN COMPARISON: None. NUMBER OF VIEWS: Two views. TECHNIQUE: AP and lateral radiographic images acquired of the thoracic spine. LIMITATIONS: None. FINDINGS: MINERALIZATION: Normal. ALIGNMENT: Normal. No scoliosis. VERTEBRAE: No fracture or bone lesion. Maintained height, normal segmentation. DISCS: Mild disc space narrowing with small osteophytes. No large osteophytes. HARDWARE: None in the spine. MEDIASTINUM AND SOFT TISSUES: Normal heart size and aortic contour. No soft tissue abnormality. VISUALIZED LUNG ALVAREZ: Clear. OTHER: No other significant finding. IMPRESSION: MILD DEGENERATIVE DISC DISEASE. NO ACUTE FINDINGS. TECHNICAL DOCUMENTATION: JOB ID: [id number] [employer]- All Rights Reserved Reading location - IP/workstation name: [email or web address]
--- NOTE | 2018-05-12 08:11 | RADIOLOGY REPORT (SQ) ---
EXAM DESCRIPTION: TIBIA FIBULA LEFT COMPLETED DATE/TIME: 05/11/2018 9:06 pm REASON FOR STUDY: PAIN IN LEFT LEG M79.605 PAIN IN LEFT LEG W17.2XXA FALL INTO HOLE, INITIAL ENCOU NTER M54.5 LOW BACK PAIN COMPARISON: None. NUMBER OF VIEWS: Two views. TECHNIQUE: Two radiographic images acquired of the left tibia and fibula to include the knee and ank le in at least one projection. LIMITATIONS: None. FINDINGS: MINERALIZATION: Normal. BONES: No acute fracture or dislocation. Degenerative changes in the knee. No worrisome bone lesion s. SOFT TISSUES: No obvious swelling or foreign body. OTHER: No other significant finding. IMPRESSION: DEGENERATIVE CHANGES IN THE KNEE. NO ACUTE FINDINGS. TECHNICAL DOCUMENTATION: JOB ID: [id number] [employer]- All Rights Reserved Reading location - IP/workstation name: [email or web address]
--- NOTE | 2018-05-12 08:12 | RADIOLOGY REPORT (SQ) ---
EXAM DESCRIPTION: FEMUR LEFT COMPLETED DATE/TIME: 05/11/2018 9:06 pm REASON FOR STUDY: PAIN IN LEFT LEG M79.605 PAIN IN LEFT LEG W17.2XXA FALL INTO HOLE, INITIAL ENCOU NTER M54.5 LOW BACK PAIN COMPARISON: None. NUMBER OF VIEWS: Two views. TECHNIQUE: Two radiographic images acquired of the left femur to include hip and knee in at least on e projection. LIMITATIONS: None. FINDINGS: MINERALIZATION: Normal. BONES: No acute fracture. No worrisome bone lesions. SOFT TISSUES: No obvious swelling or foreign body. OTHER: No other significant finding. IMPRESSION: NEGATIVE STUDY OF THE LEFT FEMUR. NO RADIOGRAPHIC EVIDENCE OF ACUTE INJURY. TECHNICAL DOCUMENTATION: JOB ID: [id number] [employer])- All Rights Reserved Reading location - IP/workstation name: [email or web address]
--- NOTE | 2018-05-12 08:12 | RADIOLOGY REPORT (SQ) ---
EXAM DESCRIPTION: FOOT LEFT COMPLETE COMPLETED DATE/TIME: 05/11/2018 8:53 pm REASON FOR STUDY: PAIN IN LEFT LEG M79.605 PAIN IN LEFT LEG W17.2XXA FALL INTO HOLE, INITIAL ENCOU NTER M54.5 LOW BACK PAIN COMPARISON: None. NUMBER OF VIEWS: Three views. TECHNIQUE: AP, lateral and oblique radiographic images acquired of the left foot. LIMITATIONS: None. FINDINGS: MINERALIZATION: Normal. BONES: No acute fracture or dislocation. No worrisome bone lesions. JOINTS: No effusions. SOFT TISSUES: No soft tissue swelling. No foreign body. OTHER: No other significant finding. IMPRESSION: NEGATIVE STUDY OF THE LEFT FOOT. NO RADIOGRAPHIC EVIDENCE OF ACUTE INJURY. TECHNICAL DOCUMENTATION: JOB ID: [id number] [email or web address]- All Rights Reserved Reading location - IP/workstation name: [email or web address]
--- NOTE | 2018-05-12 08:12 | RADIOLOGY REPORT (SQ) ---
EXAM DESCRIPTION: HIP LEFT AP/LATERAL COMPLETED DATE/TIME: 05/11/2018 9:06 pm REASON FOR STUDY: PAIN IN LEFT LEG M79.605 PAIN IN LEFT LEG W17.2XXA FALL INTO HOLE, INITIAL ENCOU NTER M54.5 LOW BACK PAIN COMPARISON: None. NUMBER OF VIEWS: Two views. TECHNIQUE: AP pelvis and additional frog-leg view of the left hip. LIMITATIONS: None. FINDINGS: MINERALIZATION: Normal. LEFT HIP: No fracture or dislocation. No worrisome bone lesions. RIGHT HIP: No fracture or dislocation. No worrisome bone lesions. PUBIS AND ISCHIUM: No fracture. PELVIS: No fracture. SACRUM: No fracture or dislocation. No worrisome bone lesions. LOWER LUMBAR SPINE: No fracture or dislocation. No worrisome bone lesions. No significant disc disea se. SOFT TISSUES: No findings. OTHER: No other significant finding. IMPRESSION: NEGATIVE STUDY OF THE LEFT HIP AND PELVIS. NO RADIOGRAPHIC EVIDENCE OF ACUTE INJURY. TECHNICAL DOCUMENTATION: JOB ID: [id number] [employer]- All Rights Reserved Reading location - IP/workstation name: [email or web address]
--- NOTE | 2018-05-12 08:13 | RADIOLOGY REPORT (SQ) ---
EXAM DESCRIPTION: ANKLE LEFT COMPLETE COMPLETED DATE/TIME: 05/11/2018 8:53 pm REASON FOR STUDY: PAIN IN LEFT LEG M79.605 PAIN IN LEFT LEG W17.2XXA FALL INTO HOLE, INITIAL ENCOU NTER M54.5 LOW BACK PAIN COMPARISON: None. NUMBER OF VIEWS: Three views. TECHNIQUE: AP, lateral, and oblique radiographic images acquired of the left ankle. LIMITATIONS: None. FINDINGS: MINERALIZATION: Normal. BONES: No acute fracture or dislocation. No worrisome bone lesions. JOINTS: No effusions. SOFT TISSUES: No soft tissue swelling. No foreign body. OTHER: No other significant finding. IMPRESSION: NEGATIVE STUDY OF THE LEFT ANKLE. NO RADIOGRAPHIC EVIDENCE OF ACUTE INJURY. TECHNICAL DOCUMENTATION: JOB ID: [id number] [employer] All Rights Reserved Reading location - IP/workstation name: [email or web address]
== END ==
LOC: RAD 20:04
PROVIDERS: ATTEND Nurse Practitioner Family
DX: M25.572 Pain in left ankle and joints of left foot (principal); M79.605 Pain in left leg; M54.5 Low back pain; M54.6 Pain in thoracic spine; W17.2XXA Fall into hole, initial encounter
CPT/HCPCS: 72070; 72110

== ENCOUNTER 2018-06-17 12:30 | Emergency (ER) | payer MEDICARE, MEDICAID ==
[2018-06-17 13:08] LABS: ABSOLUTE EOSINOPHILS # (AUTO) 0.2 10^3/uL (0.0-0.6); ABSOLUTE LYMPHOCYTES (AUTO) 1.7 10^3/uL (0.5-4.7); ABSOLUTE MONOCYTES (AUTO) 0.4 10^3/uL (0.1-1.4); ABSOLUTE NEUT (AUTO) 6.9 10^3/uL (1.7-8.2); BASOPHILS % (AUTO) 0.3 % (0-2); HEMATOCRIT 39.4 % (36.0-47.0); HEMOGLOBIN 12.9 g/dL (12.0-15.5); LYMPHOCYTES % (AUTO) 18.9 % (13-45); MEAN CORPUSCULAR HEMOGLOBIN 27.8 pg (27.0-33.4); MEAN CORPUSCULAR HGB CONC 32.7 g/dL (32.0-36.0); MEAN CORPUSCULAR VOLUME 85 fl (80-97); MONOCYTES % (AUTO) 4.7 % (3-13); PLATELET COUNT 273 10^3/uL (150-450); RED BLOOD COUNT 4.64 10^6/uL (3.72-5.28); RED CELL DISTRIBUTION WIDTH 13.6 % (11.5-14.0); SEGMENTED NEUTROPHILS % (AUTO) 74.1 % (42-78); TOTAL CELLS COUNTED % (AUTO) 100 %; WHITE BLOOD COUNT 9.3 10^3/uL (4.0-10.5)
[2018-06-17 13:33] LABS: ALANINE AMINOTRANSFERASE 15 U/L (9-52); ALBUMIN 4.4 g/dL (3.5-5.0); ALKALINE PHOSPHATASE 152 U/L (38-126); ANION GAP 11 (5-19); ASPARTATE AMINO TRANSFERASE 20 U/L (14-36); BILIRUBIN,DIRECT 0.2 mg/dL (0.0-0.4); BILIRUBIN,TOTAL 0.3 mg/dL (0.2-1.3); BLOOD UREA NITROGEN 11 mg/dL (7-20); CALCIUM 9.2 mg/dL (8.4-10.2); CARBON DIOXIDE 27 mmol/L (22-30); CHLORIDE 104 mmol/L (98-107); GLUCOSE 78 mg/dL (75-110); POTASSIUM 4.5 mmol/L (3.6-5.0); SODIUM 141.6 mmol/L (137-145); TOTAL PROTEIN 7.2 g/dL (6.3-8.2)
[2018-06-17] MEDS ORDERED: PHENOBARBITAL 32.4 MG TABLET PO ONE (14:53)
--- NOTE | 2018-06-17 15:03 | ER Document Report ---
ED General - General Chief Complaint: Probable Seizure Stated Complaint: POSSIBLE SEIZURE Time Seen by Provider: 06/17/18 14:14 Primary Care Provider: DAVID REICH DO [Primary Care Provider] - Follow up as needed TRAVEL OUTSIDE OF THE [place] IN LAST 30 DAYS: No - HPI Notes: Patient is a 58-year-old female that presents to the emergency department for chief complaint of seizure. Patient had a 1-2-minute tonic-clonic seizure witnessed by a bystander today while she was walking down the sidewalk. She had complete resolution of postictal state when EMS arrived. She did not have any urinary incontinence or injury during the seizure. Patient does have a history of epilepsy and is supposed to be taking phenobarbital. She states she has prescriptions at home that she can get filled but has not been taking the medication for the last few days. Patient currently has no complaints and feels back to normal. Past Medical History: Seizures Past Surgical History: Reviewed in chart Social History: Reviewed in chart Family History: Reviewed and noncontributory for presenting illness Allergies: Reviewed, see documented allergy list. REVIEW OF SYSTEMS: CONSTITUTIONAL : No fever No chills No diaphoresis No recent illness EENT: No vision changes No congestion No sore throat CARDIOVASCULAR: No chest pain No palpitations RESPIRATORY: No shortness of breath No cough No difficulty breathing GASTROINTESTINAL: No abdominal pain No nausea No vomiting No diarrhea GENITOURINARY: No dysuria No hematuria No difficulty urinating MUSCULOSKELETAL: No back pain No leg pain No arm pain SKIN: No rashes No lesions LYMPHATIC: No swollen, enlarged glands. NEUROLOGICAL: Seizure No lightheadedness No headache No weakness No paresthesias PSYCHIATRIC: No anxiety No depression PHYSICAL EXAMINATION: Vital signs reviewed, nursing noted reviewed. GENERAL: Well-appearing, well-nourished and in no acute distress. HEAD: Atraumatic, normocephalic. EYES: Eyes appear normal, extraocular movements intact, sclera anicteric, conjun ctiva are normal. ENT: nares patent, oropharynx clear without exudates. Moist mucous membranes. NECK: Normal range of motion, supple without lymphadenopathy LUNGS: Breath sounds clear to auscultation bilaterally and equal. No wheezes rales or rhonchi. HEART: Regular rate and rhythm without murmurs ABDOMEN: Soft, nontender, normoactive bowel sounds. No rebound, guarding, or rigidity. No masses appreciated. EXTREMITIES: Nontender, good range of motion, no pitting or edema. NEUROLOGICAL: No focal neurological deficits. Moves all extremities spontaneously Motor and sensory grossly intact on exam. PSYCH: Normal mood, normal affect. SKIN: Warm, Dry, normal turgor, no rashes or lesions noted on exposed skin - Related Data Allergies/Adverse Reactions: carbamazepine [From Tegretol] Allergy (Verified 02/03/17 00:35) ibuprofen [From Motrin] Allergy (Verified 02/03/17 00:35) iodine Allergy (Verified 02/03/17 00:35) phenytoin [From Dilantin] Allergy (Verified 02/03/17 00:35) Past Medical History - Social History Smoking Status: Never Smoker Chew tobacco use (# tins/day): No Frequency of alcohol use: None Drug Abuse: None Family History: Reviewed & Not Pertinent Patient has suicidal ideation: No Patient has homicidal ideation: No - Past Medical History Cardiac Medical History: Reports: Hx Hypertension Pulmonary Medical History: Reports: Hx Asthma Neurological Medical History: Reports: Hx Migraine, Hx Seizures Endocrine Medical History: Reports: Hx Hypothyroidism Renal/ Medical History: Denies: Hx Peritoneal Dialysis GI Medical History: Reports: Hx Crohn's Disease Musculoskeletal Medical History: Reports Hx Musculoskeletal Trauma Psychiatric Medical History: Reports: Hx Anxiety, Hx Depression Past Surgical History: Reports: Hx Cholecystectomy, Hx Orthopedic Surgery - Knee replacement 11/19/2015 - Immunizations Hx Diphtheria, Pertussis, Tetanus Vaccination: Yes Physical Exam - Vital signs Vitals: Resp Pulse Ox 13 100 06/17/18 12:41 06/17/18 12:41 Course - Re-evaluation Re-evalutation: 06/17/18 15:00 Vitals reviewed. Nursing notes reviewed. Patient is neurologically intact and has complete recovery from postictal state during my evaluation. She has a history of seizure disorders but has not had any seizure while being monitored in the emergency room. Her recurrence of seizure is likely related to noncompliance with home medications. She does have prescriptions for her phenobarbital and her dose was confirmed with the pharmacy. 1 dose of phenobarbital was given in the ED today. Patient advised to call her primary care doctor to be seen tomorrow to discuss her medications and difficulties with getting them filled. She is to return to the emergency room for any further seizure activity. Her workup today is unremarkable including EKG. She is s table and asymptomatic Laboratory 06/17/18 06/17/18 12:51 12:51 WBC 9.3 RBC 4.64 Hgb 12.9 Hct 39.4 MCV 85 MCH 27.8 MCHC 32.7 RDW 13.6 Plt Count 273 Seg Neutrophils % 74.1 Lymphocytes % 18.9 Monocytes % 4.7 Eosinophils % 2.0 Basophils % 0.3 Absolute Neutrophils 6.9 Absolute Lymphocytes 1.7 Absolute Monocytes 0.4 Absolute Eosinophils 0.2 Absolute Basophils 0.0 Sodium 141.6 Potassium 4.5 Chloride 104 Carbon Dioxide 27 Anion Gap 11 BUN 11 Creatinine 1.04 Est GFR ( Amer) > 60 Est GFR (Non-Af Amer) 55 L Glucose 78 Calcium 9.2 Magnesium 2.2 Total Bilirubin 0.3 Direct Bilirubin 0.2 Neonat Total Bilirubin Not Reportable Neonat Direct Bilirubin Not Reportable Neonat Indirect Bili Not Reportable AST 20 ALT 15 Alkaline Phosphatase 152 H Total Protein 7.2 Albumin 4.4 at time of discharge. - Vital Signs Vital signs: Temp Pulse Resp BP Pulse Ox 98.3 F 13 131/85 H 99 06/17/18 13:00 06/17/18 14:01 06/17/18 14:00 06/17/18 14:01 - Laboratory Result Diagrams: 06/17/18 12:51 06/17/18 12:51 Laboratory results interpreted by me: 06/17/18 12:51 Est GFR (Non-Af Amer) 55 L Alkaline Phosphatase 152 H - EKG Interpretation by Me Additional EKG results interpreted by me: 06/17/18 15:01 Interpreted by myself 1254: Normal sinus rhythm, rate 79, normal axis, no ectopy, no STEMI Discharge - Discharge Clinical Impression: Breakthrough seizure Condition: Stable Disposition: HOME, SELF-CARE Instructions: Seizure, Known Epileptic ([facility]) Additional Instructions: Please return to the emergency department if you have any worsening, or concern of your symptoms. Please return to the emergency department if you develop chest pain, difficulty breathing, severe abdominal pain, or ongoing vomiting. Please follow-up with your primary care physician in 1 days and any other recommended physicians. If prescribed, take all medications as directed. If you have any questions or concerns do not hesitate to return the emergency department for evaluation. Take your prescriptions to a pharmacy and asked them if they can order the medications if they do not have it available. See your primary care doctor tomorrow if you are having difficulty obtaining her home prescription medications. Return to the emergency room if you have another seizure in the next 24 hours. Referrals: DAVID REICH DO [Primary Care Provider] - Follow up tomorrow
[2018-06-17 15:40] VITALS: BP 136/78
--- NOTE | 2018-06-19 09:36 | EKG REPORT ---
SEVERITY:- BORDERLINE ECG - SINUS RHYTHM BORDERLINE T ABNORMALITIES, ANTERIOR LEADS : Confirmed by: Tasha Freed 19-Jun-2018 09:35:53
== END 2018-06-17 15:40 | disposition home or self-care (01) ==
LOC: ER 12:30
DX: R56.9 Unspecified convulsions (principal); I10 Essential (primary) hypertension; Z88.6 Allergy status to analgesic agent; Z90.49 Acquired absence of other specified parts of digestive tract
CPT/HCPCS: 93005; 99284; 36415; 83735; 80184; 85025; 80053; 93010; A9270; J3490

== ENCOUNTER 2019-02-13 20:07 | Emergency (ER) | payer MEDICARE, MEDICAID ==
--- NOTE | 2019-02-13 22:00 | ER Document Report ---
ED Medical Screen (RME) - General Chief Complaint: Abdominal Pain Stated Complaint: ABDOMINAL PAIN Time Seen by Provider: 02/13/19 21:57 Primary Care Provider: DAVID REICH DO [Primary Care Provider] - Follow up as needed Mode of Arrival: Ambulatory Information source: Patient Notes: 58-year-old female presented to ED for complaint of abdominal pain above the umbilicus. She states when she lays down there is a bulge there.. She states the pain started yesterday. She states she just noticed the bulge yesterday when she started having pain. She states she has had nausea and vomiting vomited 3 times today. She states she has had her gallbladder removed. I have greeted and performed a rapid initial assessment of this patient. A comprehensive ED assessment and evaluation of the patient, analysis of test results and completion of medical decision making process will be conducted by an additional ED providers. TRAVEL OUTSIDE OF THE [place] IN LAST 30 DAYS: No - Related Data Allergies/Adverse Reactions: carbamazepine [From Tegretol] Allergy (Verified 02/03/17 00:35) ibuprofen [From Motrin] Allergy (Verified 02/03/17 00:35) iodine Allergy (Verified 02/03/17 00:35) phenytoin [From Dilantin] Allergy (Verified 02/03/17 00:35) Past Medical History - Past Medical History Cardiac Medical History: Reports: Hx Hypertension Pulmonary Medical History: Reports: Hx Asthma Neurological Medical History: Reports: Hx Migraine, Hx Seizures Endocrine Medical History: Reports: Hx Hypothyroidism Renal/ Medical History: Denies: Hx Peritoneal Dialysis GI Medical History: Reports: Hx Crohn's Disease Musculoskeltal Medical History: Reports Hx Musculoskeletal Trauma Psychiatric Medical History: Reports: Hx Anxiety, Hx Depression Past Surgical History: Reports: Hx Cholecystectomy, Hx Orthopedic Surgery - Knee replacement 11/19/2015 - Immunizations Hx Diphtheria, Pertussis, Tetanus Vaccination: Yes Physical Exam - Vital signs Vitals: Temp Pulse Resp BP Pulse Ox 98.6 F 84 18 142/104 H 97 02/13/19 20:28 02/13/19 20:28 02/13/19 20:28 02/13/19 20:28 02/13/19 20:28 Course - Vital Signs Vital signs: Temp Pulse Resp BP Pulse Ox 98.6 F 84 18 142/104 H 97 02/13/19 20:28 02/13/19 20:28 02/13/19 20:28 02/13/19 20:28 02/13/19 20:28 Doctor's Discharge - Discharge Referrals: DAVID REICH DO [Primary Care Provider] - Follow up as needed
[2019-02-13 22:43] LABS: APPEARANCE,URINE SLIGHTLY-CLOUDY; BILIRUBIN,URINE NEGATIVE (NEGATIVE); COLOR,URINE YELLOW; GLUCOSE, URINE NEGATIVE (NEGATIVE); KETONES,URINE NEGATIVE (NEGATIVE); PROTEIN,URINE NEGATIVE (NEGATIVE); URINE SPECIFIC GRAVITY 1.011; UROBILINOGEN,URINE NEGATIVE mg/dL (<2.0)
[2019-02-13 23:08] LABS: ALBUMIN 4.5 g/dL (3.5-5.0); ALKALINE PHOSPHATASE 153 U/L (38-126); ANION GAP 11 (5-19); ASPARTATE AMINO TRANSFERASE 23 U/L (14-36); BILIRUBIN,DIRECT 0.2 mg/dL (0.0-0.4); BILIRUBIN,TOTAL 0.3 mg/dL (0.2-1.3); BLOOD UREA NITROGEN 12 mg/dL (7-20); CALCIUM 10.1 mg/dL (8.4-10.2); CARBON DIOXIDE 26 mmol/L (22-30); CHLORIDE 104 mmol/L (98-107); GLUCOSE 168 mg/dL (75-110); TOTAL PROTEIN 7.9 g/dL (6.3-8.2)
--- NOTE | 2019-02-13 23:11 | RADIOLOGY REPORT (SQ) ---
EXAM DESCRIPTION: US ABDOMEN DOPPLER LIMITED COMPLETED DATE/TME: 02/13/2019 22:00 CLINICAL HISTORY: 58 years, Female, Abdominal pain just above the umbilicus COMPARISON: None. TECHNIQUE: Axial 2-D grayscale images of the abdomen were acquired. Doppler was utilized. LIMITATIONS: None. FINDINGS: Limited sonographic evaluation of the superficial soft tissues of the abdomen was performed, just superior to the umbilicus. Images show a hypoechoic area located just above the umbilicus measuring 1.5 cm in transverse diameter, best visualized in image 14. Areas of posterior acoustic shadowing are noted about this location, raising the possibility of a ventral hernia containing small bowel loops. IMPRESSION: Suspect small ventral hernia demonstrating posterior acoustic shadowing, possibly indicating the presence of bowel loops (although the presence of clean shadowing as opposed to dirty shadowing is somewhat unusual). Recommend confirmation with dedicated CT. copyright 2010 [employer]- All Rights Reserved
[2019-02-14 01:42] LABS: ABSOLUTE BASOPHILS # (AUTO) 0.1 10^3/uL (0.0-0.2); ABSOLUTE EOSINOPHILS # (AUTO) 0.2 10^3/uL (0.0-0.6); ABSOLUTE LYMPHOCYTES (AUTO) 2.3 10^3/uL (0.5-4.7); ABSOLUTE MONOCYTES (AUTO) 0.6 10^3/uL (0.1-1.4); ABSOLUTE NEUT (AUTO) 8.5 10^3/uL (1.7-8.2); BASOPHILS % (AUTO) 0.6 % (0-2); EOSINOPHILS % (AUTO) 1.9 % (0-6); HEMATOCRIT 43.1 % (36.0-47.0); HEMOGLOBIN 13.7 g/dL (12.0-15.5); LYMPHOCYTES % (AUTO) 19.4 % (13-45); MEAN CORPUSCULAR HEMOGLOBIN 26.9 pg (27.0-33.4); MEAN CORPUSCULAR HGB CONC 31.9 g/dL (32.0-36.0); MEAN CORPUSCULAR VOLUME 84 fl (80-97); PLATELET COUNT 317 10^3/uL (150-450); RED CELL DISTRIBUTION WIDTH 13.9 % (11.5-14.0); SEGMENTED NEUTROPHILS % (AUTO) 73.1 % (42-78); TOTAL CELLS COUNTED % (AUTO) 100 %; WHITE BLOOD COUNT 11.6 10^3/uL (4.0-10.5)
--- NOTE | 2019-02-14 04:10 | ER Document Report ---
ED General - General Chief Complaint: Abdominal Pain Stated Complaint: ABDOMINAL PAIN Time Seen by Provider: 02/13/19 21:57 Primary Care Provider: DAVID REICH DO [Primary Care Provider] - Follow up as needed Mode of Arrival: Ambulatory TRAVEL OUTSIDE OF THE [place] IN LAST 30 DAYS: No - Related Data Allergies/Adverse Reactions: shellfish derived Allergy (Severe, Verified 02/14/19 04:42) Swelling of Throat carbamazepine [From Tegretol] Allergy (Verified 02/03/17 00:35) ibuprofen [From Motrin] Allergy (Verified 02/03/17 00:35) phenytoin [From Dilantin] Allergy (Verified 02/03/17 00:35) Home Medications: Adderall. Percocet Past Medical History - General Information source: Patient - Social History Smoking Status: Current Every Day Smoker Chew tobacco use (# tins/day): No Frequency of alcohol use: None Drug Abuse: None Family History: Reviewed & Not Pertinent Patient has suicidal ideation: No Patient has homicidal ideation: No - Past Medical History Cardiac Medical History: Reports: Hx Hypertension Pulmonary Medical History: Reports: Hx Asthma Neurological Medical History: Reports: Hx Migraine, Hx Seizures Endocrine Medical History: Reports: Hx Hypothyroidism Renal/ Medical History: Denies: Hx Peritoneal Dialysis GI Medical History: Reports: Hx Crohn's Disease Musculoskeletal Medical History: Reports Hx Musculoskeletal Trauma Psychiatric Medical History: Reports: Hx Anxiety, Hx Depression Past Surgical History: Reports: Hx Cholecystectomy, Hx Orthopedic Surgery - Knee replacement 11/19/2015 - Immunizations Hx Diphtheria, Pertussis, Tetanus Vaccination: Yes Physical Exam - Vital signs Vitals: Temp Pulse Resp BP Pulse Ox 98.6 F 84 18 142/104 H 97 02/13/19 20:28 02/13/19 20:28 02/13/19 20:28 02/13/19 20:28 02/13/19 20:28 - Notes Notes: Patient presents emergency department complaining periumbilical pain is been gone for the past 2 days. Is constant in nature. She is noticed a little bulge and a firm knot in that area. She had some nausea vomiting with this but no diarrhea or fevers or urinary symptoms. Reports that she has had some shortness of breath for the past week associated with a nonproductive cough no fevers. She has been using her inhaler but ran out Past medical history includes hypertension seizures hypothyroid and Crohn's has had a gallbladder removed Review of systems all systems reviewed were acutely negative except as in HPI PHYSICAL EXAMINATION: Triage note reviewed and vital signs noted GENERAL: Well-appearing, well-nourished mild distress HEAD: Atraumatic, normocephalic. EYES: Pupils equal round and reactive to light, extraocular movements intact, sclera anicteric, conjunctiva are normal. ENT: nares patent, oropharynx clear without exudates. Moist mucous membranes. NECK: Normal range of motion, supple without lymphadenopathy LUNGS: Breath sounds and wheezes throughout but no respiratory distress HEART: Regular rate and rhythm without murmurs ABDOMEN: Soft, there is minimal diffuse tenderness throughout but no peritoneal signs. She had a small umbilical hernia which is tender but feels reducible EXTREMITIES: Normal range of motion, no pitting or edema. No cyanosis. NEUROLOGICAL: No focal neurological deficits. Moves all extremities spontaneously and on command. PSYCH: Normal mood, normal affect. SKIN: Warm, Dry, normal turgor, no rashes or lesions noted. Course - Vital Signs Vital signs: Temp Pulse Resp BP Pulse Ox 97.8 F 68 14 152/90 H 97 02/14/19 05:09 02/14/19 05:09 02/14/19 05:09 02/14/19 05:09 02/14/19 05:09 - Laboratory Result Diagrams: 02/14/19 01:30 02/13/19 22:40 Laboratory results interpreted by me: 02/13/19 02/13/19 02/14/19 22:10 22:40 01:30 WBC 11.6 H MCH 26.9 L MCHC 31.9 L Absolute Neuts (auto) 8.5 H Est GFR (MDRD) Non-Af 58 L Glucose 168 H Alkaline Phosphatase 153 H Lipase 21.5 L Urine Blood SMALL H Leukocyte Esterase Rfl MODERATE H - Diagnostic Test Radiology reviewed: Reports reviewed - Transfer of Care Care transferred to following provider: DR AGUILAR Discharge - Discharge Clinical Impression: Umbilical hernia Disposition: HOME, SELF-CARE Referrals: DAVID REICH DO [Primary Care Provider] - Follow up as needed
[2019-02-14] MEDS ORDERED: ONDANSETRON HCL INJ/PF 4 MG/2 ML SDV IV ONE (04:13)
[2019-02-14] MEDS ORDERED: IPRATROPIUM/ALBUTEROL 0.5-2.5 MG/3 ML AMPUL NEB ONE ×3 (04:16→06:33)
[2019-02-14] MEDS ORDERED: METHYLPREDNISOLONE INJ 125 MG/2 ML SDV IV ONE (04:16)
[2019-02-14] MEDS ORDERED: NORMAL SALINE 1000 ML 1,000 ML IV ONE (04:17)
[2019-02-14] MEDS: MORPHINE SULFATE 10 MG/ML INJ IV PRN ×2 (05:00→06:34)
--- NOTE | 2019-02-14 05:44 | RADIOLOGY REPORT (SQ) ---
CT abdomen and pelvis with contrast on 02/14/2019 at 4:46 AM CLINICAL INDICATION: Periumbilical abdominal pain, lower abdominal pain TECHNIQUE: Multiple axial images are obtained throughout the abdomen and pelvis following the administration of IV contrast, 86 mL of Omnipaque 350 contrast was administered intravenously without complication. This exam was performed according to our departmental dose-optimization program, which includes automated exposure control, adjustment of the mA and/or kV according to patient size and/or use of iterative reconstruction technique. Total DLP is 1455.84 mGy*cm. COMPARISON: None FINDINGS: Abdomen: The lung bases are clear. The patient is status post cholecystectomy. There is fatty infiltration of the liver. The solid abdominal organs are otherwise unremarkable. There is no abdominal adenopathy. There is no free fluid or free air within the abdomen. The abdominal portion of the GI tract is unremarkable. Pelvis: Pelvic organs appear unremarkable by CT. The patient is status post appendectomy. Pelvic portion of the GI tract is unremarkable. There is no free fluid in the pelvis. There is no pelvic adenopathy. Degenerative changes are noted in the lower lumbar spine. There is grade 1 spondylolisthesis at L4-5 secondary to degenerative facet disease. IMPRESSION: No acute abnormality.
--- NOTE | 2019-02-14 07:22 | RADIOLOGY REPORT (SQ) ---
EXAM DESCRIPTION: XR CHEST 1 VIEW COMPLETED DATE/TME: 02/14/2019 06:32 CLINICAL HISTORY: 58 years Female, Short of breath COMPARISON: None. NUMBER OF VIEWS/TECHNIQUE: 1/AP FINDINGS: Adequate lung volume, clear parenchyma, normal cardiac silhouette, and osteoarthritis. IMPRESSION: No acute cardiopulmonary findings.
[2019-02-14] MEDS ORDERED: ALBUTEROL SULFATE HFA (90 MCG/PUFF) 8 GM MDI (1 MDI/ER DISP) IH PRN (07:51)
[2019-02-14 08:03] VITALS: BP 153/99
== END 2019-02-14 08:03 | disposition home or self-care (01) ==
LOC: ER 20:07
DX: K42.9 Umbilical hernia without obstruction or gangrene (principal); R10.9 Unspecified abdominal pain; R05 Cough; R06.02 Shortness of breath; F17.200 Nicotine dependence, unspecified, uncomplicated; Z91.013 Allergy to seafood; Z88.6 Allergy status to analgesic agent; Z90.49 Acquired absence of other specified parts of digestive tract; Z96.659 Presence of unspecified artificial knee joint
CPT/HCPCS: 94640 ×2; 99284; 96361; 96374; 96375; 36415; 87086; 83690; 85025; 80053; 81001; 71045; 76705; 93976; 74177; J2930; J2270; J2405; J7030; A9270 ×2; J3490; J7620

== ENCOUNTER 2019-07-03 14:53 | Emergency (ER) | payer MEDICARE, MEDICAID ==
[2019-07-03] MEDS ORDERED: METHYLPREDNISOLONE ACETATE INJ 40 MG/1 ML ML IM ONE (16:14)
[2019-07-03] MEDS ORDERED: DEXAMETHASONE SOD PHOS INJ 10 MG/1 ML VIAL IM ONE (16:14)
[2019-07-03] MEDS ORDERED: CEFTRIAXONE INJ 1000 MG VIAL IM ONE (16:14)
[2019-07-03] MEDS ORDERED: LIDOCAINE 1% INJ (10 MG/ML) 10 ML MDV ONE (16:48)
[2019-07-03] MEDS ORDERED: ACETAMINOPHEN 325 MG TABLET PO ONE (19:01)
--- NOTE | 2019-07-03 19:06 | ER Document Report ---
ED General - General Chief Complaint: Cough Stated Complaint: COUGH,CONGESTION,VOMITING Time Seen by Provider: 07/03/19 16:09 Primary Care Provider: DAVID REICH DO [Primary Care Provider] - Follow up as needed Notes: Patient is a 59-year-old female with no reported past medical history who presents to the emergency department with a chief complaint of cough that began nearly 3 weeks ago. The patient reports that her younger family member who was in grade school came home sick after being exposed to influenza. The patient reports that he quickly spread his illness throughout the house to many members of the home. She states some have resolved spontaneously however hers have persisted. She went to see her doctor on 19 June who prescribed her an unknown course of antibiotics which she self discontinued, inhaler. She states she was sent for chest x-ray, they did swabs of her nose and throat and she has a follow-up appointment at 8:45 in the morning tomorrow morning for results of these tests. She states she was just feeling bad so she came for evaluation. She admits to associated nausea, vomiting, headache, body aches, intermittent sore throat and a dry cough. Admits to fevers in the morning but not otherwise. Denies any recent travel or any known exposures to any patient under investigation or positive confirmation of coronavirus. TRAVEL OUTSIDE OF THE [place] IN LAST 30 DAYS: No - Related Data Allergies/Adverse Reactions: shellfish derived Allergy (Severe, Verified 02/14/19 04:42) Swelling of Throat carbamazepine [From Tegretol] Allergy (Verified 02/03/17 00:35) ibuprofen [From Motrin] Allergy (Verified 02/03/17 00:35) phenytoin [From Dilantin] Allergy (Verified 02/03/17 00:35) Past Medical History - Social History Smoking Status: Current Every Day Smoker Family History: Reviewed & Not Pertinent Patient has suicidal ideation: No Patient has homicidal ideation: No - Past Medical History Cardiac Medical History: Reports: Hx Hypertension Pulmonary Medical History: Reports: Hx Asthma Neurological Medical History: Reports: Hx Migraine, Hx Seizures Endocrine Medical History: Reports: Hx Hypothyroidism Renal/ Medical History: Denies: Hx Peritoneal Dialysis GI Medical History: Reports: Hx Crohn's Disease Musculoskeletal Medical History: Reports Hx Musculoskeletal Trauma Psychiatric Medical History: Reports: Hx Anxiety, Hx Depression Past Surgical History: Reports: Hx Cholecystectomy, Hx Orthopedic Surgery - Knee replacement 11/19/2015 - Immunizations Hx Diphtheria, Pertussis, Tetanus Vaccination: Yes Review of Systems - Review of Systems Constitutional: Fever, Malaise, Weakness EENT: Throat pain Respiratory: Cough Gastrointestinal: Vomiting Neurological/Psychological: Other - Headache -: Yes All other systems reviewed and negative Physical Exam - Vital signs Vitals: Temp Pulse Resp BP Pulse Ox 98.5 F 97 20 135/87 H 98 07/03/19 15:53 07/03/19 15:53 07/03/19 15:53 07/03/19 15:53 07/03/19 15:53 - General General appearance: Appears well, Alert In distress: None Notes: Nontoxic - HEENT Head: Normocephalic, Atraumatic Eyes: Normal Conjunctiva: Normal Extraocular movements intact: Yes Eyelashes: Normal Pupils: PERRL Ears: Normal External canal: Normal Tympanic membrane: Normal Nasal: Normal Mouth/Lips: Normal Mucous membranes: Normal Pharynx: Normal Neck: Normal - Respiratory Respiratory status: No respiratory distress Chest status: Nontender Breath sounds: Normal Chest palpation: Normal - Cardiovascular Rhythm: Regular Heart sounds: Normal auscultation - Neurological Neuro grossly intact: Yes Cognition: Normal Orientation: AAOx4 Ann Coma Scale Eye Opening: Spontaneous Ann Coma Scale Verbal: Oriented [place] Coma Scale Motor: Obeys Commands [place] Coma Scale Total: 15 Speech: Normal - Psychological Associated symptoms: Normal affect, Normal mood - Skin Skin Temperature: Warm Skin Moisture: Dry Skin Color: Normal Course - Re-evaluation Re-evalutation: 07/03/19 19:04 Patient is refusing blood work at this time. She declines any further nasal or oropharyngeal swabs. States that she just desires something for her headache at this time and will go to her doctor in the morning as scheduled for results. Should be given Tessalon for cough. She is low risk for coronavirus exposure however she will call the [place] hotline for further consultation as well as call the health department for outpatient testing. I counseled her at length regarding the importance of outpatient follow-up as well as self quarantine in her home. Advise she return here or any ER immediately with any new, persistent or worsening symptoms. She verbalized understood and agreed. - Vital Signs Vital signs: Temp Pulse Resp BP Pulse Ox 98.5 F 97 20 135/87 H 98 03/12/20 15:53 07/03/19 15:53 07/03/19 15:53 07/03/19 15:53 07/03/19 15:53 Discharge - Discharge Clinical Impression: Viral syndrome Condition: Stable Disposition: HOME, SELF-CARE Instructions: Viral Syndrome ([facility]) Additional Instructions: Please call the [place] novel coronavirus hotline at for further consultation. Please follow-up with your doctor in the health department for outpatient testing. Please remain isolated in your home at this time. Return here or any ER immediately with any new, persistent or worsening symptoms. Prescriptions: Benzonatate [Tessalon Perles 100 mg Capsule] 200 mg PO Q8HP PRN #40 capsule PRN Reason: Cough Referrals: DAVID REICH DO [Primary Care Provider] - Follow up as needed
--- NOTE | 2019-07-03 19:16 | RADIOLOGY REPORT (SQ) ---
EXAM DESCRIPTION: CHEST 2 VIEWS COMPLETED DATE/TIME: 07/03/2019 6:44 pm REASON FOR STUDY: cough COMPARISON: Two-view chest 07/03/2019 EXAM PARAMETERS: NUMBER OF VIEWS: two views TECHNIQUE: Digital Frontal and Lateral radiographic views of the chest acquired. RADIATION DOSE: NA LIMITATIONS: none FINDINGS: LUNGS AND PLEURA: No opacities, masses or pneumothorax. No pleural effusion. MEDIASTINUM AND HILAR STRUCTURES: No masses or contour abnormalities. HEART AND VASCULAR STRUCTURES: Heart normal size. No evidence for failure. BONES: No acute findings. HARDWARE: Clips right upper quadrant post cholecystectomy. OTHER: No other significant finding. IMPRESSION: NO ACUTE RADIOGRAPHIC FINDING IN THE CHEST. TECHNICAL DOCUMENTATION: JOB ID: [id number] 2010 [employer]- All Rights Reserved Reading location - IP/workstation name: [email or web address]
[2019-07-03 20:01] VITALS: BP 147/89
== END 2019-07-03 19:50 | disposition home or self-care (01) ==
LOC: ER 14:53
DX: B34.9 Viral infection, unspecified (principal); R51 Headache; R05 Cough; R11.2 Nausea with vomiting, unspecified; J02.9 Acute pharyngitis, unspecified; R50.9 Fever, unspecified; R53.81 Other malaise; R53.1 Weakness; F17.200 Nicotine dependence, unspecified, uncomplicated; I10 Essential (primary) hypertension; J45.909 Unspecified asthma, uncomplicated; Z91.013 Allergy to seafood; Z88.8 Allergy status to other drugs, medicaments and biological substances
CPT/HCPCS: 99283; 96372; 96374; 71046; A9270; J1030; J0696; J1100

== ENCOUNTER → 2019-07-03 | Outpatient (CLI) | payer MEDICARE, MEDICAID ==
--- NOTE | 2019-07-03 15:38 | RADIOLOGY REPORT (SQ) ---
EXAM DESCRIPTION: CHEST PA/LATERAL COMPLETED DATE/TIME: 07/03/2019 2:13 pm REASON FOR STUDY: SHORTNESS OF BREATH COMPARISON: None. EXAM PARAMETERS: NUMBER OF VIEWS: two views TECHNIQUE: Digital Frontal and Lateral radiographic views of the chest acquired. RADIATION DOSE: NA LIMITATIONS: none FINDINGS: LUNGS AND PLEURA: No opacities, masses or pneumothorax. No pleural effusion. MEDIASTINUM AND HILAR STRUCTURES: No masses or contour abnormalities. HEART AND VASCULAR STRUCTURES: Heart normal size. No evidence for failure. BONES: No acute findings. HARDWARE: None in the chest. OTHER: No other significant finding. IMPRESSION: NO SIGNIFICANT RADIOGRAPHIC FINDING IN THE CHEST. TECHNICAL DOCUMENTATION: JOB ID: [id number] 2010 [employer]- All Rights Reserved Reading location - IP/workstation name: [email or web address]
== END ==
LOC: OD 13:48
PROVIDERS: ATTEND Nurse Practitioner Family
DX: R06.02 Shortness of breath (principal)
CPT/HCPCS: 71046

== ENCOUNTER 2019-12-25 09:15 | Emergency (ER) | payer MEDICARE, MEDICAID ==
[2019-12-25 09:26] VITALS: BP 139/78
--- NOTE | 2019-12-25 10:40 | ER Document Report ---
ED General - General Stated Complaint: CHEST PAIN Primary Care Provider: DAVID REICH DO [Primary Care Provider] - Follow up as needed Mode of Arrival: Ambulatory Information source: Patient Notes: Patient is a 59-year-old female sent in by her family physician for evaluation. Patient states that she was sent in to have a COVID test and also to be evaluated for chest pain. At time of my evaluation patient is already stating that she does not want to stay she does not want to have blood work she does not want a chest x-ray. Patient states that she has issues at home that she needs to deal with she has a dog that is getting ready to have puppies. Patient denies nausea vomiting diarrhea cough or cold symptoms. TRAVEL OUTSIDE OF THE [place] IN LAST 30 DAYS: No - HPI Onset: Last week Onset/Duration: Gradual, Persistent Quality of pain: Achy Severity: Mild Associated symptoms: Shortness of breath. denies: Productive cough, Diarrhea, Nausea, Vomiting Exacerbated by: Denies Relieved by: Denies Similar symptoms previously: Yes Recently seen / treated by doctor: Yes - Related Data Allergies/Adverse Reactions: shellfish derived Allergy (Severe, Verified 02/14/19 04:42) Swelling of Throat carbamazepine [From Tegretol] Allergy (Verified 02/03/17 00:35) ibuprofen [From Motrin] Allergy (Verified 02/03/17 00:35) phenytoin [From Dilantin] Allergy (Verified 02/03/17 00:35) Past Medical History - General Information source: Patient - Social History Smoking Status: Current Every Day Smoker Cigarette use (# per day): Yes Chew tobacco use (# tins/day): No Smoking Education Provided: Yes Frequency of alcohol use: None Drug Abuse: None Lives with: Family Family History: Reviewed & Not Pertinent Patient has suicidal ideation: No Patient has homicidal ideation: No - Past Medical History Cardiac Medical History: Reports: Hx Hypertension Pulmonary Medical History: Reports: Hx Asthma Neurological Medical History: Reports: Hx Migraine, Hx Seizures Endocrine Medical History: Reports: Hx Hypothyroidism Renal/ Medical History: Denies: Hx Peritoneal Dialysis GI Medical History: Reports: Hx Crohn's Disease Musculoskeletal Medical History: Reports Hx Musculoskeletal Trauma Psychiatric Medical History: Reports: Hx Anxiety, Hx Depression Past Surgical History: Reports: Hx Cholecystectomy, Hx Orthopedic Surgery - Knee replacement 11/19/2015 - Immunizations Hx Diphtheria, Pertussis, Tetanus Vaccination: Yes Review of Systems - Review of Systems Constitutional: No symptoms reported EENT: No symptoms reported Cardiovascular: Chest pain Respiratory: No symptoms reported Gastrointestinal: No symptoms reported Genitourinary: No symptoms reported Female Genitourinary: No symptoms reported Musculoskeletal: No symptoms reported Skin: No symptoms reported Hematologic/Lymphatic: No symptoms reported Neurological/Psychological: No symptoms reported -: Yes All other systems reviewed and negative Physical Exam - Vital signs Vitals: Temp Pulse Resp BP Pulse Ox 98.0 F 106 H 16 139/78 H 100 12/25/19 09:25 12/25/19 09:25 12/25/19 09:25 12/25/19 09:25 12/25/19 09:25 - Notes Notes: PHYSICAL EXAMINATION: GENERAL: Well-appearing, well-nourished and in no acute distress. HEAD: Atraumatic, normocephalic. EYES: Pupils equal round and reactive to light, extraocular movements intact, sclera anicteric, conjunctiva are normal. ENT: nares patent, oropharynx clear without exudates. Moist mucous membranes. NECK: Normal range of motion, supple without lymphadenopathy, no appreciable JVD LUNGS: Lungs clear to auscultation bilaterally and equal. No wheezes rales or rhonchi. HEART: Regular rate and rhythm without murmurs ABDOMEN: Soft, nontender, normal bowel sounds. No guarding, no rebound. No masses appreciated. EXTREMITIES: Active full range of motion, no pitting or edema. No cyanosis. 2+ pulses x4 NEUROLOGICAL: No focal neurological deficits. Moves all extremities spontaneously and on command. Patient is alert and oriented x3 SKIN: Warm, Dry, and intact. Normal turgor, no rashes or lesions noted. Course - Re-evaluation Re-evalutation: 12/25/19 10:38 After a long conversation with the patient she still is requesting to be signed out AGAINST MEDICAL ADVICE she states that she does not have the time to stay and be evaluated. I did look at her EKG it shows sinus tachycardia similar in morphology to a prior EKG from June 17, 2018. Patient understands that this places her at risk because we have not had a chance to thoroughly evaluate her for her chest pain. Patient is stable and understands the ability to return to the emergency department if the pain gets worse or does not subside. - Vital Signs Vital signs: Temp Pulse Resp BP Pulse Ox 98.0 F 106 H 16 139/78 H 100 12/25/19 09:25 12/25/19 09:25 12/25/19 09:25 12/25/19 09:25 12/25/19 09:25 Discharge - Discharge Clinical Impression: Chest pain Qualifiers: Chest pain type: unspecified Qualified Code(s): R07.9 - Chest pain, unspecified Condition: Stable Disposition: AGAINST MEDICAL ADVICE Referrals: DAVID REICH DO [Primary Care Provider] - Follow up as needed
--- NOTE | 2019-12-25 13:51 | EKG REPORT ---
SEVERITY:- ABNORMAL ECG - SINUS TACHYCARDIA PROBABLE LEFT ATRIAL ABNORMALITY CONSIDER RIGHT VENTRICULAR HYPERTROPHY BORDERLINE T ABNORMALITIES, INFERIOR LEADS : Confirmed by: Gideon Rome MD 25-Dec-2019 13:50:49
== END 2019-12-25 10:40 | disposition left against medical advice (07) ==
LOC: ER 09:15
DX: R07.9 Chest pain, unspecified (principal); R06.02 Shortness of breath; Z88.8 Allergy status to other drugs, medicaments and biological substances; F17.210 Nicotine dependence, cigarettes, uncomplicated; I10 Essential (primary) hypertension; J45.909 Unspecified asthma, uncomplicated
CPT/HCPCS: 93005; 93010; 99283

== ENCOUNTER 2020-03-07 22:29 | Emergency (ER) | payer MEDICARE, MEDICAID ==
[2020-03-07] MEDS ORDERED: ONDANSETRON 4 MG TAB.RAPDIS PO ONE (23:45)
[2020-03-07] MEDS ORDERED: ACETAMINOPHEN 325 MG TABLET PO ONE (23:45)
--- NOTE | 2020-03-07 23:49 | ER Document Report ---
ED Medical Screen (RME) - General Chief Complaint: Closed Head Injury Stated Complaint: FALL-HEAD PAIN,DIZZINESS Time Seen by Provider: 03/07/20 23:41 Primary Care Provider: DAVID REICH DO [Primary Care Provider] - Follow up as needed Mode of Arrival: Ambulatory Information source: Patient Notes: HPI; a 59-year-old female presents to the emergency room complaining of headache, head injury and neck pain. Patient states she went to walk her dogs when her daughter opened the door and the dogs pulled her causing her to fall hit the back of her head on a brick. Positive LOC. Denies any previous trauma or injury to her head. States she has been taking oxycodone without relief. She is complaining of a headache, as well as neck pain. PE: Alert and oriented x3. No blankenship signs, no raccoon eyes. Tenderness to the posterior scalp with a 2 cm hematoma palpated. She is painful range of motion with her cervical spine. Cervical spine is nontender to palpation. There is no step-offs. Lungs: Clear to auscultation without rales, rhonchi, wheezes. Heart: Regular rate rhythm without murmurs, rubs, gallops. I have greeted and performed a rapid initial assessment of this patient. A comprehensive ED assessment and evaluation of the patient, analysis of test results and completion of the medical decision making process will be conducted by additional ED providers. I have specifically instructed the patient or family members with the patient to immediately return to any nursing staff should anything change in the patient's condition or with their chief complaint. TRAVEL OUTSIDE OF THE [place] IN LAST 30 DAYS: No - Related Data Allergies/Adverse Reactions: shellfish derived Allergy (Severe, Verified 02/14/19 04:42) Swelling of Throat carbamazepine [From Tegretol] Allergy (Verified 02/03/17 00:35) ibuprofen [From Motrin] Allergy (Verified 02/03/17 00:35) morphine Allergy (Verified 03/07/20 23:44) phenytoin [From Dilantin] Allergy (Verified 02/03/17 00:35) Past Medical History - Social History Chew tobacco use (# tins/day): No Frequency of alcohol use: None Drug Abuse: None - Past Medical History Cardiac Medical History: Reports: Hx Hypertension Pulmonary Medical History: Reports: Hx Asthma Neurological Medical History: Reports: Hx Migraine, Hx Seizures Endocrine Medical History: Reports: Hx Hypothyroidism Renal/ Medical History: Denies: Hx Peritoneal Dialysis GI Medical History: Reports: Hx Crohn's Disease Musculoskeltal Medical History: Reports Hx Musculoskeletal Trauma Psychiatric Medical History: Reports: Hx Anxiety, Hx Depression Past Surgical History: Reports: Hx Cholecystectomy, Hx Orthopedic Surgery - Knee replacement 11/19/2015 - Immunizations Hx Diphtheria, Pertussis, Tetanus Vaccination: Yes Physical Exam - Vital signs Vitals: Temp Pulse Resp BP Pulse Ox 98.3 F 77 17 151/91 H 99 03/07/20 23:18 03/07/20 23:18 03/07/20 23:18 03/07/20 23:18 03/07/20 23:18 Course - Vital Signs Vital signs: Temp Pulse Resp BP Pulse Ox 98.3 F 77 17 151/91 H 99 03/07/20 23:44 03/07/20 23:18 03/07/20 23:18 03/07/20 23:18 03/07/20 23:18 Doctor's Discharge - Discharge Referrals: DAVID REICH DO [Primary Care Provider] - Follow up as needed
--- NOTE | 2020-03-08 01:54 | RADIOLOGY REPORT (SQ) ---
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 COMPARISON: CT the head from 02/03/2017 TECHNIQUE: Multiple axial contiguous images were obtained through the head without intravenous contrast administered. This exam was performed according to our departmental dose-optimization program, which includes automated exposure control, adjustment of the mA and/or KV according to the patient's size and/or use of iterative reconstruction technique. FINDINGS: The ventricles and cerebral sulci demonstrate mild prominence, consistent with cerebral atrophy. There are mild periventricular hypodensities, suggestive of periventricular white matter changes. The boogie-white matter differentiation is within normal limits. Bilateral punctate basal ganglia calcifications are seen. Both orbits appear unremarkable. The mastoid air cells appear clear. There is mild mucoperiosteal thickening of the ethmoid sinuses. The calvarium is intact. No extra-axial fluid collection is seen. No midline shift or mass effect is apparent. There are no findings to suggest acute intracranial hemorrhage. IMPRESSION: 1. No acute intracranial hemorrhage is seen. 2. Mild cerebral atrophy and periventricular white matter changes are seen.
--- NOTE | 2020-03-08 02:02 | RADIOLOGY REPORT (SQ) ---
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 Sagittal and coronal reconstructions were also reviewed. This exam was performed according to our departmental dose-optimization program, which includes automated exposure control, adjustment of the mA and/or KV according to the patient's size and/or use of iterative reconstruction technique. COMPARISON: None available INDICATION: 59-year old patient with neck pain head injury. FINDINGS: Multilevel anterior osteophytes are seen at the cervical spine. The there is minimal retrolisthesis of C5 over C6 and C6 over C7. The vertebral body heights appear well maintained. No significant pre-vertebral soft tissue swelling is noted. No definite fracture or subluxation is noted. Mild to moderate multilevel intervertebral disc space narrowing is seen, most pronounced at C5/C6. There is a disc osteophyte seen at C5/C6 and C6/C7. There is some mild facet hypertrophy within the lower cervical spine contributing to mild bilateral neural foraminal narrowing.. The visualized brain parenchyma appears unremarkable. The craniocervical junction is unremarkable. IMPRESSION: There are no findings to suggest an acute fracture or subluxation within the cervical spine. Degenerative changes are seen at the cervical spine.
[2020-03-08] MEDS ORDERED: DIAZEPAM 5 MG TABLET PO ONE (03:05)
--- NOTE | 2020-03-08 03:08 | ER Document Report ---
ED Head/Face/Scalp Injury - General Chief Complaint: Closed Head Injury Stated Complaint: FALL-HEAD PAIN,DIZZINESS Time Seen by Provider: 03/07/20 23:41 Primary Care Provider: DAVID REICH DO [Primary Care Provider] - Follow up as needed Mode of Arrival: Ambulatory Notes: Patient is a 59-year-old female comes emergency department for chief complaint of fall with head injury. She was walking her dogs, the dog suddenly pulled her forward, she slipped, fell, hit the back of her head on a brick. She passed out for about 2 minutes. This happened almost 2 days ago now. She states she has a lot of tightness in her neck, difficulty focusing, headaches, nausea, dizziness. However she denies focal numbness or weakness, pain anywhere other than the neck and the back of the head, vomiting, incontinence. She denies chest pain or abdominal pain. She is not on a blood thinner. TRAVEL OUTSIDE OF THE [place] IN LAST 30 DAYS: No - Related Data Allergies/Adverse Reactions: shellfish derived Allergy (Severe, Verified 02/14/19 04:42) Swelling of Throat carbamazepine [From Tegretol] Allergy (Verified 02/03/17 00:35) ibuprofen [From Motrin] Allergy (Verified 02/03/17 00:35) morphine Allergy (Verified 03/07/20 23:44) phenytoin [From Dilantin] Allergy (Verified 02/03/17 00:35) Past Medical History - General Information source: Patient - Social History Smoking Status: Current Every Day Smoker Chew tobacco use (# tins/day): No Frequency of alcohol use: None Drug Abuse: None Family History: Reviewed & Not Pertinent Patient has homicidal ideation: No - Past Medical History Cardiac Medical History: Reports: Hx Hypertension Pulmonary Medical History: Reports: Hx Asthma Neurological Medical History: Reports: Hx Migraine, Hx Seizures Endocrine Medical History: Reports: Hx Hypothyroidism Renal/ Medical History: Denies: Hx Peritoneal Dialysis GI Medical History: Reports: Hx Crohn's Disease Musculoskeletal Medical History: Reports Hx Musculoskeletal Trauma Psychiatric Medical History: Reports: Hx Anxiety, Hx Depression Past Surgical History: Reports: Hx Cholecystectomy, Hx Orthopedic Surgery - Knee replacement 11/19/2015 - Immunizations Hx Diphtheria, Pertussis, Tetanus Vaccination: Yes Review of Systems - Review of Systems Constitutional: No symptoms reported EENT: No symptoms reported Cardiovascular: No symptoms reported Respiratory: No symptoms reported Gastrointestinal: No symptoms reported Genitourinary: No symptoms reported Female Genitourinary: No symptoms reported Musculoskeletal: See HPI Skin: No symptoms reported Hematologic/Lymphatic: No symptoms reported Neurological/Psychological: See HPI Physical Exam - Vital signs Vitals: Temp Pulse Resp BP Pulse Ox 98.3 F 77 17 151/91 H 99 03/07/20 23:18 03/07/20 23:18 03/07/20 23:18 03/07/20 23:18 03/07/20 23:18 - Notes Notes: GENERAL: Alert, interacts well. No acute distress. HEAD: Normocephalic. Area consistent with a small hematoma in the central upper occipital area. EYES: Pupils equal, round, and reactive to light. Extraocular movements intact. ENT: Oral mucosa moist, tongue midline. Oropharynx unremarkable. Airway patent. NECK: Full range of motion. Supple. Trachea midline. No lymphadenopathy. LUNGS: Clear to auscultation bilaterally, no wheezes, rales, or rhonchi. No respiratory distress. Non-tender chest wall. HEART: Regular rate and rhythm. No murmur ABDOMEN: Soft, non-tender. Non-distended. EXTREMITIES: Moves all 4 extremities spontaneously. No edema, normal radial and dorsalis pedis pulses bilaterally. No cyanosis. BACK: Patient with difficulty performing lateral range of motion with her neck although flexion and extension are present (but painful). Tenderness over bilateral paracervical musculature and upper trapezius muscles noted. No signs of trauma. No cervical, thoracic, lumbar midline tenderness. No saddle anesthesia, normal distal neurovascular exam. Moves all extremities in full range of motion. NEUROLOGICAL: Alert and oriented x3. Normal speech. Cranial nerves II through XII grossly intact. Strength 5/5 in all extremities. PSYCH: Normal affect, normal mood. SKIN: Warm, dry, normal turgor. No rashes or lesions noted. Course - Re-evaluation Re-evalutation: Patient with an area over the upper occipital scalp consistent with a hematoma that is resolving. No open wounds. Patient with a lot of stiffness in the neck with difficulty performing range of motion especially laterally. No neurological deficits reported. Patient with symptoms suggesting postconcussive syndrome, I did review CAT scan of the head and neck and these show no acute findings. I provided patient with a copy on request. Exam is reassuring, patient very appreciative, discussed options, expectations, follow-up, return cautions. Patient states understanding and agreement. Stable and well- appearing at time of discharge. - Vital Signs Vital signs: Temp Pulse Resp BP Pulse Ox 98.0 F 70 16 165/97 H 100 03/08/20 03:05 03/08/20 03:05 03/08/20 03:05 03/08/20 03:05 03/08/20 03:05 Discharge - Discharge Clinical Impression: Neck pain Head injury Qualifiers: Encounter type: initial encounter Qualified Code(s): S09.90XA - Unspecified injury of head, initial encounter Scalp hematoma Qualifiers: Encounter type: initial encounter Qualified Code(s): S00.03XA - Contusion of scalp, initial encounter Condition: Stable Disposition: HOME, SELF-CARE Additional Instructions: Your imaging of the head and neck do not show new concerning findings. Your exam is consistent with a hematoma on your scalp that will go away with time, you can apply ice to the area. You also have an exam indicating very tight muscles in your paracervical and trapezius muscles with muscle spasm. I recommend the Valium using the precautions, heat, gentle stretches. I also believe that you have a concussion, this should resolve with time but you may experience nausea, difficulty focusing, headaches, etc. Follow-up with primary care. Return if you worsen including severe worsening headache, vomiting, developing numbness, loss of control of your bowel or bladder, or any other concerning symptoms. Prescriptions: Diazepam [Valium 5 mg Tablet] 1 - 2 tab PO TID PRN #12 tablet PRN Reason: Referrals: DAVID REICH DO [Primary Care Provider] - Follow up as needed
[2020-03-08 03:13] VITALS: BP 165/97
== END 2020-03-08 03:13 | disposition home or self-care (01) ==
LOC: ER 22:29
DX: S09.90XA Unspecified injury of head, initial encounter (principal); S00.03XA Contusion of scalp, initial encounter; R42 Dizziness and giddiness; M54.2 Cervicalgia; W01.10XA Fall on same level from slipping, tripping and stumbling with subsequent striking against unspecified object, initial encounter; Y93.K1 Activity, walking an animal; I10 Essential (primary) hypertension
CPT/HCPCS: 99284; 70450; 72125; A9270 ×3; S0119